=== PATIENT | female | born 1990 | race Caucasian/White ===

== ENCOUNTER → 2016-07-03 | Outpatient (CLI) | payer BC, OTHER ==
[~2016-07-03] MED LIST: ACHYD1T PO; DCS100C PO; DEXL30CA2 PO; IBP800T PO; MAGN400T6 PO; NUVA RING; ONDA4TAB11 PO; ONDAN4ODT PO; OXYC1TAB12 PO; PREN-115 PO; PREN1TAB19 PO; SULF1TAB38 PO; micronor PO
[2016-07-03 08:47] LABS: BASOPHILS % (AUTO) 0 % (0-10); EOSINOPHILS # (AUTO) 0.1 10^3/uL (0.0-0.3); EOSINOPHILS % (AUTO) 1 % (0-10); LYMPHOCYTES # (AUTO) 3.1 X 10^3 (1.0-4.0); LYMPHOCYTES % (AUTO) 31 % (12-44); MEAN CORPUSCULAR HEMOGLOBIN 31 PG (25-34); MEAN CORPUSCULAR HGB CONC 34 G/DL (32-36); MEAN CORPUSCULAR VOLUME 91 FL (80-99); MEAN PLATELET VOLUME 9.9 FL (7.4-10.4); MONOCYTES # (AUTO) 1.3 X 10^3 (0.0-1.0); MONOCYTES % (AUTO) 13 % (0-12); NEUTROPHILS # (AUTO) 5.6 X 10^3 (1.8-7.8); NEUTROPHILS % (AUTO) 55 % (42-75); PLATELET COUNT 280 10^3/uL (130-400); RED BLOOD COUNT 4.42 10^6/uL (4.35-5.85); RED CELL DISTRIBUTION WIDTH 12.9 % (10.0-14.5); WHITE BLOOD COUNT 10.1 10^3/uL (4.3-11.0)
[2016-07-03 09:00] LABS: ALANINE AMINOTRANSFERASE 30 U/L (0-55); ALBUMIN 4.2 G/DL (3.2-4.5); ANION GAP 12 MMOL/L (5-14); ASPARTATE AMINO TRANSFERASE 62 U/L (5-34); BILIRUBIN,TOTAL 0.3 MG/DL (0.1-1.0); BLOOD UREA NITROGEN 18 MG/DL (7-18); BUN/CREATININE RATIO 22; CALCIUM 9.1 MG/DL (8.5-10.1); CARBON DIOXIDE 21 MMOL/L (21-32); CHLORIDE 107 MMOL/L (98-107); CREATININE SERUM 0.82 MG/DL (0.60-1.30); GFR ESTIMATED > 60; GLUCOSE 82 MG/DL (70-105); POTASSIUM 3.2 MMOL/L (3.6-5.0); SODIUM 140 MMOL/L (135-145); hs C REACTIVE PROTEIN 0.06 MG/DL (0.00-0.50)
[2016-07-03 09:12] LABS: ERYTHROCYTE SEDIMENTATION RATE 6 MM/HR (0-20)
== END ==
LOC: LAB 07:37
PROVIDERS: ATTEND Emergency Medicine
DX: R55 Syncope and collapse (principal)
CPT/HCPCS: 36415; 80053; 84443; 85025; 85652; 86141

== ENCOUNTER 2017-04-26 05:31 | Outpatient (CLI) | payer BC ==
[~2017-04-26] VITALS: Ht 162.6 cm; Wt 66.7 kg
[2017-04-26] MEDS ORDERED: ONDA4TAB10 PO (11:21)
[2017-04-26] MEDS ORDERED: NORG1TAB14 PO (11:21)
[2017-04-26] MEDS ORDERED: NAPR-1070 PO (11:21)
[2017-04-29] MEDS ORDERED: NITR-65 PO (12:42)
[2017-04-29] MEDS ORDERED: OXYC-465 PO (12:42)
== END 2017-04-26 11:22 ==
LOC: PREOP 05:31
PROVIDERS: ATTEND Obstetrics & Gynecology
DX: Z01.818 Encounter for other preprocedural examination (principal); R10.2 Pelvic and perineal pain; N80.9 Endometriosis, unspecified; N93.8 Other specified abnormal uterine and vaginal bleeding; D64.9 Anemia, unspecified

== ENCOUNTER → 2017-05-02 | Outpatient (CLI) | payer BC ==
[~2017-05-02] MED LIST changes: +IOHEXOL 350 MG/ML 100 ML (OMNIPAQUE 350) VIAL IV ONE; +NAPR-1070 PO; +NITR-65 PO; +NORG1TAB14 PO; +NS 250 ML (IVPB) BAG IV ONE; +ONDA4TAB10 PO; +OXYC-465 PO
[2017-05-02 10:48] LABS: MEAN PLATELET VOLUME 9.5 FL (7.4-10.4); RED BLOOD COUNT 4.09 10^6/uL (4.35-5.85); RED CELL DISTRIBUTION WIDTH 12.9 % (10.0-14.5)
[2017-05-02 11:09] LABS: ALANINE AMINOTRANSFERASE 31 U/L (0-55); ALBUMIN 3.7 GM/DL (3.2-4.5); ALKALINE PHOSPHATASE 29 U/L (40-136); BILIRUBIN,TOTAL 0.3 MG/DL (0.1-1.0); BUN/CREATININE RATIO 11; CALCIUM 8.9 MG/DL (8.5-10.1); CARBON DIOXIDE 26 MMOL/L (21-32); CHLORIDE 103 MMOL/L (98-107); CREATININE SERUM 0.79 MG/DL (0.60-1.30); GFR ESTIMATED > 60; GLUCOSE 93 MG/DL (70-105); POTASSIUM 3.8 MMOL/L (3.6-5.0); SODIUM 136 MMOL/L (135-145); TOTAL PROTEIN 6.5 GM/DL (6.4-8.2)
--- NOTE | 2017-05-02 11:43 | Diagnostic Imaging Report ---
PROCEDURE: CT abdomen and pelvis with contrast. TECHNIQUE: Multiple contiguous axial images were obtained through the abdomen and pelvis after administration of intravenous contrast. INDICATION: Right side pain. COMPARISON: CT abdomen and pelvis with IV contrast 03/10/2013. FINDINGS: Stable scarring in the right lung base. Gallbladder wall thickening. No radiopaque cholelithiasis. Normal-appearing common bile duct. The liver, spleen, pancreas, adrenals, kidneys and collecting systems are unremarkable. Appendectomy. Small amount of fluid dependently in the pelvis. The reproductive structures are grossly unremarkable. No free intraperitoneal air. No lymphadenopathy. No evidence of bowel obstruction. Osseous structures are unremarkable. IMPRESSION: 1. Gallbladder wall thickening. No radiopaque cholelithiasis or dilatation of the common bile duct. This could be better evaluated with dedicated ultrasound. 2. Small amount of fluid in the pelvis may be physiologic. Dictated by: Dictated on workstation # [id number]
== END ==
LOC: RAD 10:28
PROVIDERS: ATTEND Obstetrics & Gynecology
DX: K82.8 Other specified diseases of gallbladder (principal); R10.9 Unspecified abdominal pain
CPT/HCPCS: 36415; 74177; 80053; 85027

== ENCOUNTER → 2017-05-06 | Outpatient (CLI) | payer BC ==
[~2017-05-06] MED LIST changes: -IOHEXOL 350 MG/ML 100 ML (OMNIPAQUE 350) VIAL IV ONE; -NS 250 ML (IVPB) BAG IV ONE
--- NOTE | 2017-05-06 15:38 | Diagnostic Imaging Report ---
CLINICAL INDICATION: Patient with severe right-sided pain. COMPARISON: Nuclear medicine HIDA study dated 03/19/2013. PROCEDURE: The patient was administered 5.31 millicuries of technetium 99m Choletec. After 60 minutes of the images, one can of Ensure was drink followed by another 60 minutes of imaging. A nuclear medicine hepatobiliary scan with ejection fraction was performed. FINDINGS: There is prompt uptake and excretion of radiotracer by the liver. Activity is visible in the gallbladder by 15 minutes and the small bowel by 15 minutes. Ejection fraction of the gallbladder is calculated at 67% (normal >35%). The patient's previous ejection fraction was 66%. The gallbladder visibly empties on the scans following the ingestion of Ensure. IMPRESSION: Normal hepatobiliary scan with normal gallbladder ejection fraction. Dictated by: Dictated on workstation # [id number]
== END ==
LOC: CARD 12:41
PROVIDERS: ATTEND Obstetrics & Gynecology
DX: R10.84 Generalized abdominal pain (principal)
CPT/HCPCS: 78227

== ENCOUNTER 2018-03-10 14:33 | Outpatient (CLI) | payer BC ==
[~2018-03-10] VITALS: Ht 162.6 cm; Wt 66.7 kg
[2018-03-10 14:44] VITALS: BP 130/83
[2018-03-10] MEDS ORDERED: PHEN37.53 PO (14:48)
[2018-03-10 15:13] LABS: BASOPHILS # (AUTO) 0.1 10^3/uL (0.0-0.1); BASOPHILS % (AUTO) 1 % (0-10); EOSINOPHILS # (AUTO) 0.1 10^3/uL (0.0-0.3); EOSINOPHILS % (AUTO) 1 % (0-10); HEMATOCRIT 40 % (35-52); HEMOGLOBIN 13.5 G/DL (11.5-16.0); LYMPHOCYTES # (AUTO) 2.5 X 10^3 (1.0-4.0); LYMPHOCYTES % (AUTO) 35 % (12-44); MEAN CORPUSCULAR HEMOGLOBIN 30 PG (25-34); MEAN CORPUSCULAR HGB CONC 34 G/DL (32-36); MEAN CORPUSCULAR VOLUME 90 FL (80-99); MEAN PLATELET VOLUME 8.9 FL (7.4-10.4); MONOCYTES # (AUTO) 0.8 X 10^3 (0.0-1.0); MONOCYTES % (AUTO) 12 % (0-12); NEUTROPHILS # (AUTO) 3.7 X 10^3 (1.8-7.8); NEUTROPHILS % (AUTO) 52 % (42-75); PLATELET COUNT 357 10^3/uL (130-400); RED BLOOD COUNT 4.47 10^6/uL (4.35-5.85); WHITE BLOOD COUNT 7.1 10^3/uL (4.3-11.0)
[2018-03-12] MEDS ORDERED: OXYC1TAB87 PO (12:19)
[2018-03-12] MEDS ORDERED: NAPR-1070 PO (12:19)
[2018-03-12] MEDS ORDERED: DOCU-143 PO (12:19)
== END 2018-03-10 15:05 | disposition home or self-care (01) ==
LOC: PREOP 14:33
PROVIDERS: ATTEND Obstetrics & Gynecology
DX: Z01.812 Encounter for preprocedural laboratory examination (principal); Z11.2 Encounter for screening for other bacterial diseases; R10.2 Pelvic and perineal pain; N80.9 Endometriosis, unspecified; N92.0 Excessive and frequent menstruation with regular cycle; D64.9 Anemia, unspecified
CPT/HCPCS: 36415; 84703; 85025; 87081

== ENCOUNTER 2018-03-12 11:40 | Day surgery (SDC) | payer BC ==
--- NOTE | 2018-03-05 11:57 | HISTORY AND PHYSICAL ---
DATE OF SERVICE: PREOPERATIVE HISTORY AND PHYSICAL HISTORY OF PRESENT ILLNESS: The patient is a 27-year-old G2, P2 white female with a long history of pelvic pain, dysfunctional uterine bleeding, menorrhagia and a history of endometriosis. Her symptoms have progressed and returned over the years. She now is at a point where she has completed her childbearing. Her pain is interfering with her being able to perform her work. 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 She is now pursuing definitive surgical treatment in the form of hysterectomy with bilateral salpingo-oophorectomy. She has no other particular gynecologic complaints. She denies vaginal discharge and has no urinary incontinence. She has tried oral contraceptives without improvement of her symptoms. ALLERGIES: PENICILLIN, which causes swelling and hives. MEDICATIONS: Sprintec. Medical, social and surgical histories are per this patient's recent H and P dated 01/30/2018. PHYSICAL EXAMINATION: HEENT: Normal. NECK: Supple, no lymphadenopathy and no thyromegaly. ABDOMEN: Soft, nontender and nondistended. There is some suprapubic tenderness and some tenderness in the lower quadrants bilaterally, left greater than the right. HEART: Has a regular rhythm with no murmur. CHEST: Clear to auscultation bilaterally. PELVIC EXAM: Deferred to the operating room. ASSESSMENT AND PLAN: This patient has a history of chronic pelvic pain and dysfunctional uterine bleeding, breakthrough bleeding and menorrhagia that have not been controlled with hormonal therapy to date. She is scheduled now for 03/12 to have definitive surgical treatment in the form of hysterectomy with bilateral salpingo-oophorectomy. Surgical risks, complication, recovery and follow up have been fully discussed and the patient accepts those risks and is ready to proceed. Job ID: [id number] DocumentID: [id number] Dictated Date: 03/05/2018 11:38:37 Wellness Educator Date: 03/05/2018 11:56:44 Dictated By: RAMIRO CARRINGTON MD
[~2018-03-12] VITALS: Ht 162.6 cm; Wt 66.7 kg
[2018-03-12] VITALS (7 sets, daily range): BP systolic 100–118; BP diastolic 59–79
[~2018-03-12 11:40] MED LIST changes: +PHEN37.53 PO
[2018-03-12] MEDS ORDERED: GLYCOPYRROLATE 0.2 MG/ML (ROBINUL) 2 ML VIAL ONE (11:52)
[2018-03-12] MEDS ORDERED: MIDAZOLAM 2 MG/2 ML (VERSED) VIAL ONE (11:52)
[2018-03-12] MEDS ORDERED: LIDOCAINE PF 2% 5 ML (XYLOCAINE) VIAL ONE (11:52)
[2018-03-12] MEDS ORDERED: NEOSTIGMINE 1 MG/ML 5 ML SYRINGE ONE (11:52)
[2018-03-12] MEDS ORDERED: SEVOFLURANE (ULTANE) 15 ML INHAL SOLN ONE (11:52)
[2018-03-12] MEDS ORDERED: proPOfol 200 MG/20 ML (DIPRIVAN) VIAL IV ONE (11:52)
[2018-03-12] MEDS ORDERED: DEXAMETHASONE 10 MG/ML (DECADRON) 1 ML VIAL ONE (11:52)
[2018-03-12] MEDS ORDERED: ROCURONIUM 10 MG/ML 5 ML SYRINGE IV ONE (11:52)
[2018-03-12] MEDS ORDERED: fentaNYL INJECTION 100 MCG/2 ML AMP ONE ×2 (11:52→13:24)
[2018-03-12] MEDS ORDERED: ONDANSETRON 4 MG/2 ML (SDV) Z0FRAN ONE ×2 (11:52→14:16)
--- OUTSIDE RECORDS SUMMARY | 2018-03-12 11:52 | XMS REPORT | Continuity of Care Document ---
Author Author [facility] Organization [facility] Address Unknown Phone Unavailable Allergies Active Description Code Type Severity Reaction Onset Reported/Identified Relationship to Patient Clinical Status Yes cefuroxime [id number] Drug Allergy Unknown RASH 07/16/2014 Yes PENICILLIN PENICILLIN Unknown HIVES 07/16/2014 Yes Penicillins [id number] Drug Allergy Unknown RASH 04/26/2017 Medications There is no data. Problems Date Dx Coded Attending Type Code Diagnosis Diagnosed By 09/11/2009 Ot 850.0 CONCUSSION W/ O COMA 09/11/2009 Ot 920 CONTUSION FACE/ SCALP/NCK 09/11/2009 Ot 959.01 HEAD INJURY , NOS 09/11/2009 Ot E000.8 OTHER EXTERNAL CAUSE STATUS 09/11/2009 Ot E030 UNSPECIFIED ACTIVITY 09/11/2009 Ot E849.0 ACCIDENT IN HOME 09/11/2009 Ot E888.1 FALL STRIKING OBJECT NEC 03/14/2011 Ot 462 ACUTE PHARYNGITIS 02/28/2012 Ot 883.0 OPEN WOUND OF FINGER 02/28/2012 Ot E000.0 CIVILIAN ACTIVITY DONE FOR INCOME OR PAY 02/28/2012 Ot E920.5 HYPODERMIC NEEDLE 02/28/2012 Ot V22.2 PREG STATE, INCIDENTAL 04/09/2012 Ot 648.73 BONE DISORDER-ANTEPARTUM 04/09/2012 Ot 719.45 JOINT PAIN- PELVIS 04/09/2012 Ot V57.1 PHYSICAL THERAPY NEC 05/27/2012 Ot 665.41 HIGH VAGINAL LACER-DELIV 05/27/2012 Ot V27.0 DELIVER- SINGLE LIVEBORN 03/11/2013 [employer] Ot 560.1 PARALYTIC ILEUS 03/11/2013 [employer] Ot 574.20 CHOLELITHIASIS NOS 03/11/2013 [employer] Ot 575.8 DIS OF GALLBLADDER NEC 03/11/2013 [employer] Ot 789.00 ABDOMINAL PAIN, UNSPECIFIED SITE 07/08/2014 Ot 789.00 07/08/2014 Ot 789.00 07/08/2014 Ot 285.9 07/08/2014 Ot 625.9 07/08/2014 Ot V72.83 07/08/2014 Ot 789.01 07/08/2014 Ot 625.8 07/08/2014 Ot 780.60 07/08/2014 Ot 786.2 07/08/2014 Ot 724.5 07/08/2014 Ot 786.2 07/08/2014 Ot 729.5 07/08/2014 TOM MULTANI MD Ot 789.01 07/16/2014 TOM MULTANI MD Ot 789.01 07/16/2014 TMO MULTANI MD Ot 789.01 07/16/2014 TOM MULTANI MD Ot 789.01 07/18/2014 CHARISSA MEDLEY, RAMIRO Hanna Ot 644.13 THREAT LABOR NEC-ANTEPAR 07/19/2014 TOM MULTANI MD Ot 789.01 07/20/2014 TOM MULTANI MD Ot 789.01 08/23/2014 RAMIRO CARRINGTON MD Ot 644.03 THRT [place] LABOR-ANTEPART 08/30/2014 RAMIRO CARRINGTON MD Ot 644.03 THRT [employer] LABOR-ANTEPART 09/04/2014 TOM MULTANI MD Ot 789.01 09/05/2014 RAMIRO CARRINGTON MD Ot 644.21 EARLY ONSET DELIVERY-DEL 09/05/2014 RAMIRO CARRINGTON MD Ot 664.01 DEL W 1 DEG LACERAT-DEL 09/05/2014 RAMIRO CARRINGTON MD Ot V06.1 [id number], COMBINED [ 09/05/2014 RAMIRO CARRINGTON MD Ot V27.0 DELIVER-SINGLE LIVEBORN 11/06/2014 TOM MULTANI MD Ot 789.01 03/11/2015 TOM MULTANI MD Ot 789.01 03/15/2015 TOM MULTANI MD Ot 789.01 03/22/2015 TOM MULTANI MD Ot 789.01 03/22/2015 TOM MULTANI MD Ot 789.01 04/19/2015 TOM MULTANI MD Ot 789.01 06/20/2015 TOM MULTANI MD, Ot 789.01 07/19/2015 Ot 729.5 PAIN IN LIMB 09/21/2015 TOM MULTANI MD Ot 789.01 ABDOMINAL PAIN, RIGHT UPPER QUADRANT 09/21/2015 TOM MULTANI MD Ot 789.01 ABDOMINAL PAIN, RIGHT UPPER QUADRANT 11/18/2015 Ot 729.5 PAIN IN LIMB 07/03/2016 TOM MULTANI MD Ot 789.01 ABDOMINAL PAIN, RIGHT UPPER QUADRANT 07/03/2016 TOM MULTANI MD, Ot R55 SYNCOPE AND COLLAPSE 07/03/2016 TOM MULTANI MD Ot 789.01 ABDOMINAL PAIN, RIGHT UPPER QUADRANT 07/09/2016 TOM MULTANI MD, Ot R55 SYNCOPE AND COLLAPSE 07/10/2016 TOM MULTANI MD, Ot R55 SYNCOPE AND COLLAPSE 07/20/2016 TOM MULTANI MD, Ot R55 SYNCOPE AND COLLAPSE 11/15/2016 TOM MULTANI MD Ot 789.01 ABDOMINAL PAIN, RIGHT UPPER QUADRANT 11/15/2016 TOM MULTANI MD, Ot R55 SYNCOPE AND COLLAPSE 01/17/2017 TOM MULTANI MD Ot 789.01 ABDOMINAL PAIN, RIGHT UPPER QUADRANT 01/17/2017 TOM MULTANI MD, Ot R55 SYNCOPE AND COLLAPSE 01/19/2017 TOM MULTANI MD Ot 789.01 ABDOMINAL PAIN, RIGHT UPPER QUADRANT 01/19/2017 TOM MULTANI MD, Ot R55 SYNCOPE AND COLLAPSE 04/25/2017 TOM MULTANI MD Ot 789.01 ABDOMINAL PAIN, RIGHT UPPER QUADRANT 04/25/2017 TOM MULTANI MD, Ot R55 SYNCOPE AND COLLAPSE 04/25/2017 TOM MULTANI MD Ot 789.01 ABDOMINAL PAIN, RIGHT UPPER QUADRANT 04/25/2017 TOM MULTANI MD Ot R55 SYNCOPE AND COLLAPSE 04/26/2017 TOM MULTANI MD Ot 789.01 ABDOMINAL PAIN, RIGHT UPPER QUADRANT 04/26/2017 TOM MULTANI MD Ot R55 SYNCOPE AND COLLAPSE 04/26/2017 TOM MULTANI MD Ot 789.01 ABDOMINAL PAIN, RIGHT UPPER QUADRANT 04/26/2017 TOM MULTANI MD Ot R55 SYNCOPE AND COLLAPSE 04/26/2017 RAMIRO CARRINGTON MD, Ot D64.9 ANEMIA, UNSPECIFIED 04/26/2017 RAMIRO CARRINGTON MD, Ot N80.9 ENDOMETRIOSIS, UNSPECIFIED 04/26/2017 RAMIRO CARRINGTON MD, Ot N93.8 OTHER SPECIFIED ABNORMAL UTERINE AND VAG 04/26/2017 RAMIRO CARRINGTON MD, Ot R10.2 PELVIC AND PERINEAL PAIN 04/26/2017 RAMIRO CARRINGTON MD, Ot Z01.818 ENCOUNTER FOR OTHER PREPROCEDURAL EXAMIN 04/29/2017 RAMIRO CARRINGTON MD, Ot N80.8 OTHER ENDOMETRIOSIS 04/29/2017 RAMIRO CARRINGTON MD, Ot N83.201 UNSPECIFIED OVARIAN CYST, RIGHT SIDE 04/29/2017 RAMIRO CARRINGTON MD, Ot N83.202 UNSPECIFIED OVARIAN CYST, LEFT SIDE 04/29/2017 RAMIRO CARRINGTON MD, Ot R10.2 PELVIC AND PERINEAL PAIN 04/29/2017 RAMIRO CARRINGTON MD, Ot Z86.19 PERSONAL HISTORY OF OTHER INFECTIOUS AND 04/29/2017 RAMIRO CARRINGTON MD, Ot Z88.0 ALLERGY STATUS TO PENICILLIN 04/29/2017 RAMIRO CARRINGTON MD, Ot Z88.1 ALLERGY STATUS TO OTHER ANTIBIOTIC AGENT 04/29/2017 RAMIRO CARRINGTON MD, Ot D64.9 ANEMIA, UNSPECIFIED 04/29/2017 RAMIRO CARRINGTON MD, Ot N80.9 ENDOMETRIOSIS, UNSPECIFIED 04/29/2017 RAMIRO CARRINGTON MD, Ot N93.8 OTHER SPECIFIED ABNORMAL UTERINE AND VAG 04/29/2017 RAMIRO CARRINGTON MD, Ot R10.2 PELVIC AND PERINEAL PAIN 04/29/2017 RAMIRO CARRINGTNO MD, Ot Z01.818 ENCOUNTER FOR OTHER PREPROCEDURAL EXAMIN 05/02/2017 RAMIRO CARRINGTON MD, Ot N80.8 OTHER ENDOMETRIOSIS 05/02/2017 RAMIRO CARRINGTON MD, Ot N83.201 UNSPECIFIED OVARIAN CYST, RIGHT SIDE 05/02/2017 RAMIRO CARRINGTON MD, Ot N83.202 UNSPECIFIED OVARIAN CYST, LEFT SIDE 05/02/2017 RAMIRO CARRINGTON MD Ot R10.2 PELVIC AND PERINEAL PAIN 05/02/2017 RAMIRO CARRINGTON MD, Ot Z86.19 PERSONAL HISTORY OF OTHER INFECTIOUS AND 05/02/2017 RAMIRO CARRINGTON MD, Ot Z88.0 ALLERGY STATUS TO PENICILLIN 05/02/2017 RAMIRO CARRINGTON MD, Ot Z88.1 ALLERGY STATUS TO OTHER ANTIBIOTIC AGENT 05/02/2017 RAMIRO CARRINGTON MD Ot N80.8 OTHER ENDOMETRIOSIS 05/02/2017 RAMIRO CARRINGTON MD, Ot N83.201 UNSPECIFIED OVARIAN CYST, RIGHT SIDE 05/02/2017 RAMIRO CARRINGTON MD, Ot N83.202 UNSPECIFIED OVARIAN CYST, LEFT SIDE 05/02/2017 RAMIRO CARRINGTON MD, Ot R10.2 PELVIC AND PERINEAL PAIN 05/02/2017 RAMIRO CARRINGTON MD, Ot Z86.19 PERSONAL HISTORY OF OTHER INFECTIOUS AND 05/02/2017 RAMIRO CARRINGTON MD Ot Z88.0 ALLERGY STATUS TO PENICILLIN 05/02/2017 RAMIRO CARRINGTON MD, Ot Z88.1 ALLERGY STATUS TO OTHER ANTIBIOTIC AGENT 05/03/2017 RAMIRO CARRINGTON MD Ot K82.8 OTHER SPECIFIED DISEASES OF GALLBLADDER 05/03/2017 RAMIRO CARRINGTON MD Ot R10.9 UNSPECIFIED ABDOMINAL PAIN 05/09/2017 RAMIRO CARRINGTON MD Ot R10.84 GENERALIZED ABDOMINAL PAIN 05/12/2017 RAMIRO CARRINGTON MD Ot K82.8 OTHER SPECIFIED DISEASES OF GALLBLADDER 05/15/2017 RAMIRO CARRINGTON MD Ot K82.8 OTHER SPECIFIED DISEASES OF GALLBLADDER 05/22/2017 Ot 789.00 05/22/2017 Ot 789.00 ABDOMINAL PAIN, UNSPECIFIED SITE 05/22/2017 Ot 285.9 05/22/2017 Ot 625.9 05/22/2017 Ot V72.83 05/22/2017 Ot 789.01 05/22/2017 Ot 625.8 05/22/2017 Ot 780.60 05/22/2017 Ot 786.2 05/22/2017 Ot 724.5 BACKACHE NOS 05/22/2017 Ot 786.2 COUGH 05/22/2017 Ot 729.5 PAIN IN LIMB 05/22/2017 TOM MULTANI MD Ot 789.01 ABDOMINAL PAIN, RIGHT UPPER QUADRANT 05/22/2017 TOM MULTANI MD Ot R55 SYNCOPE AND COLLAPSE 05/22/2017 TOM MULTANI MD Ot R55 SYNCOPE AND COLLAPSE 05/22/2017 RAMIRO CARRINGTON MD, Ot K82.8 OTHER SPECIFIED DISEASES OF GALLBLADDER 05/22/2017 RAMIRO CARRINGTON MD, Ot R10.84 GENERALIZED ABDOMINAL PAIN 05/22/2017 TOM MULTANI MD Ot 789.01 ABDOMINAL PAIN, RIGHT UPPER QUADRANT 05/22/2017 TOM MULTANI MD, Ot R55 SYNCOPE AND COLLAPSE 05/22/2017 RAMIRO CARRINGOTN MD, Ot K82.8 OTHER SPECIFIED DISEASES OF GALLBLADDER 05/22/2017 RAMIRO CARRINGTON MD, Ot R10.84 GENERALIZED ABDOMINAL PAIN 06/05/2017 RAMIRO CARRINGTON MD, Ot N80.8 OTHER ENDOMETRIOSIS 06/05/2017 RAMIRO CARRINGTON MD, Ot N83.201 UNSPECIFIED OVARIAN CYST, RIGHT SIDE 06/05/2017 RAMIRO CARRINGTON MD, Ot N83.202 UNSPECIFIED OVARIAN CYST, LEFT SIDE 06/05/2017 RAMIRO CARRINGTON MD, Ot R10.2 PELVIC AND PERINEAL PAIN 06/05/2017 RAMIRO CARRINGTON MD, Ot Z86.19 PERSONAL HISTORY OF OTHER INFECTIOUS AND 06/05/2017 RAMIRO CARRINGTON MD, Ot Z88.0 ALLERGY STATUS TO PENICILLIN 06/05/2017 RAMIRO CARRINGTON MD, Ot Z88.1 ALLERGY STATUS TO OTHER ANTIBIOTIC AGENT 06/06/2017 RAMIRO CARRINGTON MD, Ot N80.8 OTHER ENDOMETRIOSIS 06/06/2017 RAMIRO CARRINGTON MD, Ot N83.201 UNSPECIFIED OVARIAN CYST, RIGHT SIDE 06/06/2017 RAMIRO CARRINGTON MD, Ot N83.202 UNSPECIFIED OVARIAN CYST, LEFT SIDE 06/06/2017 RAMIRO CARRINGTON MD, Ot R10.2 PELVIC AND PERINEAL PAIN 06/06/2017 RAMIRO CARRINGTON MD, Ot Z86.19 PERSONAL HISTORY OF OTHER INFECTIOUS AND 06/06/2017 RAMIRO CARRINGTON MD, Ot Z88.0 ALLERGY STATUS TO PENICILLIN 06/06/2017 RAMIRO CARRINGTON MD, Ot Z88.1 ALLERGY STATUS TO OTHER ANTIBIOTIC AGENT 10/09/2017 Ot 789.00 10/09/2017 Ot 789.00 ABDOMINAL PAIN, UNSPECIFIED SITE 10/09/2017 Ot 285.9 10/09/2017 Ot 625.9 10/09/2017 Ot V72.83 10/09/2017 Ot 789.01 10/09/2017 Ot 625.8 10/09/2017 Ot 780.60 10/09/2017 Ot 786.2 10/09/2017 Ot 724.5 BACKACHE NOS 10/09/2017 Ot 786.2 COUGH 10/09/2017 Ot 729.5 PAIN IN LIMB 10/09/2017 TOM MULTANI MD Ot 789.01 ABDOMINAL PAIN, RIGHT UPPER QUADRANT 10/09/2017 TOM MULTANI MD Ot R55 SYNCOPE AND COLLAPSE 10/09/2017 TOM MULTANI MD Ot R55 SYNCOPE AND COLLAPSE 10/09/2017 RAMIRO CARRINGTON MD Ot K82.8 OTHER SPECIFIED DISEASES OF GALLBLADDER 10/09/2017 RAMIRO CARRINGTON MD Ot R10.84 GENERALIZED ABDOMINAL PAIN 11/22/2017 TOM MULTANI MD Ot 789.01 ABDOMINAL PAIN, RIGHT UPPER QUADRANT 11/22/2017 TOM MULTANI MD Ot R55 SYNCOPE AND COLLAPSE 11/22/2017 TOM MULTANI MD Ot R55 SYNCOPE AND COLLAPSE 11/22/2017 RAMIRO CARRINGTON MD Ot K82.8 OTHER SPECIFIED DISEASES OF GALLBLADDER 11/22/2017 RAMIRO CARRINGTON MD Ot R10.84 GENERALIZED ABDOMINAL PAIN 11/22/2017 TOM MULTANI MD Ot 789.01 ABDOMINAL PAIN, RIGHT UPPER QUADRANT 11/22/2017 TOM MULTANI MD, Ot R55 SYNCOPE AND COLLAPSE 11/22/2017 RAMIRO CARRINGTON MD, Ot K82.8 OTHER SPECIFIED DISEASES OF GALLBLADDER 11/22/2017 RAMIRO CARRINGTON MD Ot R10.84 GENERALIZED ABDOMINAL PAIN 12/05/2017 TOM MULTANI MD Ot 789.01 ABDOMINAL PAIN, RIGHT UPPER QUADRANT 12/05/2017 TOM MULTANI MD, Ot R55 SYNCOPE AND COLLAPSE 12/05/2017 RAMIRO CARRINGTON MD Ot K82.8 OTHER SPECIFIED DISEASES OF GALLBLADDER 12/05/2017 RAMIRO CARRINGTON MD, Ot R10.84 GENERALIZED ABDOMINAL PAIN 12/05/2017 TOM MULTANI MD Ot 789.01 ABDOMINAL PAIN, RIGHT UPPER QUADRANT 12/05/2017 TOM MULTANI MD, Ot R55 SYNCOPE AND COLLAPSE 12/05/2017 RAMIRO CARRINGTON MD Ot K82.8 OTHER SPECIFIED DISEASES OF GALLBLADDER 12/05/2017 RAMIRO CARRINGTON MD Ot R10.84 GENERALIZED ABDOMINAL PAIN 12/31/2017 TOM MULTANI MD Ot 789.01 ABDOMINAL PAIN, RIGHT UPPER QUADRANT 12/31/2017 TOM MULTANI MD, Ot R55 SYNCOPE AND COLLAPSE 12/31/2017 RAMIRO CARRINGTON MD Ot K82.8 OTHER SPECIFIED DISEASES OF GALLBLADDER 12/31/2017 RAMIRO CARRINGTON MD Ot R10.84 GENERALIZED ABDOMINAL PAIN 12/31/2017 TOM MULTANI MD Ot 789.01 ABDOMINAL PAIN, RIGHT UPPER QUADRANT 12/31/2017 TOM MULTANI MD, Ot R55 SYNCOPE AND COLLAPSE 12/31/2017 RAMIRO CARRINGTON MD, Ot K82.8 OTHER SPECIFIED DISEASES OF GALLBLADDER 12/31/2017 RAMIRO CARRINGTON MD Ot R10.84 GENERALIZED ABDOMINAL PAIN 02/17/2018 TOM MULTANI MD Ot 789.01 ABDOMINAL PAIN, RIGHT UPPER QUADRANT 02/17/2018 TOM MULTANI MD Ot R55 SYNCOPE AND COLLAPSE 02/17/2018 RAMIRO CARRINGTON MD, Ot K82.8 OTHER SPECIFIED DISEASES OF GALLBLADDER 02/17/2018 RAMIRO CARRINGTON MD, Ot R10.84 GENERALIZED ABDOMINAL PAIN Procedures Code Description Performed By Performed On 73.6 EPISIOTOMY 05/25/2012 75.69 REPAIR OB LACERATION NEC 05/25/2012 75.69 REPAIR OB LACERATION NEC 09/04/2014 Results Test Result Range Complete blood count (CBC) with automated white blood cell (WBC) differential - 07/03/16 07:40 Blood leukocytes automated count (number/volume) 10.1 10*3/uL 4.3-11.0 Blood erythrocytes automated count (number/volume) 4.42 10*6/uL 4.35-5.85 Venous blood hemoglobin measurement (mass/volume) 13.7 g/dL 11.5-16.0 Blood hematocrit (volume fraction) 40 % 35-52 Automated erythrocyte mean corpuscular volume 91 [foz_us] 80-99 Automated erythrocyte mean corpuscular hemoglobin (mass per erythrocyte) 31 pg 25-34 Automated erythrocyte mean corpuscular hemoglobin concentration measurement ( mass/volume) 34 g/dL 32-36 Automated erythrocyte distribution width ratio 12.9 % 10.0-14.5 Automated blood platelet count (count/volume) 280 10*3/uL 130-400 Automated blood platelet mean volume measurement 9.9 [foz_us] 7.4-10.4 Automated blood neutrophils/100 leukocytes 55 % 42-75 Automated blood lymphocytes/100 leukocytes 31 % 12-44 Blood monocytes/100 leukocytes 13 % 0-12 Automated blood eosinophils/100 leukocytes 1 % 0-10 Automated blood basophils/100 leukocytes 0 % 0-10 Blood neutrophils automated count (number/volume) 5.6 10*3 1.8-7.8 Blood lymphocytes automated count (number/volume) 3.1 10*3 1.0-4.0 Blood monocytes automated count (number/volume) 1.3 10*3 0.0-1.0 Automated eosinophil count 0.1 10*3/uL 0.0-0.3 Automated blood basophil count (count/volume) 0.0 10*3/uL 0.0-0.1 Comprehensive metabolic panel - 07/03/16 07:40 Serum or plasma sodium measurement (moles/volume) 140 mmol/L 135-145 Serum or plasma potassium measurement (moles/volume) 3.2 mmol/L 3.6-5.0 Serum or plasma chloride measurement (moles/volume) 107 mmol/L 98-107 Carbon dioxide 21 mmol/L 21-32 Serum or plasma anion gap determination (moles/volume) 12 mmol/L 5-14 Serum or plasma urea nitrogen measurement (mass/volume) 18 mg/dL 7-18 Serum or plasma creatinine measurement (mass/volume) 0.82 mg/dL 0.60-1.30 Serum or plasma urea nitrogen/creatinine mass ratio 22 NRG Serum or plasma creatinine measurement with calculation of estimated glomerular filtration rate > NRG Serum or plasma glucose measurement (mass/volume) 82 mg/dL 70-105 Serum or plasma calcium measurement (mass/volume) 9.1 mg/dL 8.5-10.1 Serum or plasma total bilirubin measurement (mass/volume) 0.3 mg/dL 0.1-1.0 Serum or plasma alkaline phosphatase measurement (enzymatic activity/volume) 40 U/L 40-136 Serum or plasma aspartate aminotransferase measurement (enzymatic activity/ volume) 62 U/L 5-34 Serum or plasma alanine aminotransferase measurement (enzymatic activity/volume ) 30 U/L 0-55 Serum or plasma protein measurement (mass/volume) 7.0 g/dL 6.4-8.2 Serum or plasma albumin measurement (mass/volume) 4.2 g/dL 3.2-4.5 Serum or plasma thyrotropin measurement by detection limit <=0.05 miu/l (units/ volume) - 07/03/16 07:40 Serum or plasma thyrotropin measurement by detection limit <=0.05 miu/l (units/ volume) 1.97 u[iU]/mL 0.35-4.94 Erythrocyte sedimentation rate by westergren method - 07/03/16 07:40 Erythrocyte sedimentation rate by westergren method 6 mm 0-20 Serum or plasma C reactive protein measurement (mass/volume) - 07/03/16 07:40 Serum or plasma C reactive protein measurement (mass/volume) 0.06 mg /dL 0.00-0.50 Urine beta human chorionic gonadotropin (hCG) measurement - 04/29/17 11:10 Urine beta human chorionic gonadotropin (hCG) measurement NEGATIVE NEGATIVE Methicillin resistant Staphylococcus aureus (MRSA) screening culture - 11:30 Methicillin resistant Staphylococcus aureus (MRSA) screening culture NEG NRG Complete blood count (CBC) with automated white blood cell (WBC) differential - 04/29/17 11:59 Blood leukocytes automated count (number/volume) 8.7 10*3/uL 4.3-11.0 Blood erythrocytes automated count (number/volume) 4.35 10*6/uL 4.35-5.85 Venous blood hemoglobin measurement (mass/volume) 13.8 g/dL 11.5-16.0 Blood hematocrit (volume fraction) 40 % 35-52 Automated erythrocyte mean corpuscular volume 92 [foz_us] 80-99 Automated erythrocyte mean corpuscular hemoglobin (mass per erythrocyte) 32 pg 25-34 Automated erythrocyte mean corpuscular hemoglobin concentration measurement ( mass/volume) 34 g/dL 32-36 Automated erythrocyte distribution width ratio 12.9 % 10.0-14.5 Automated blood platelet count (count/volume) 273 10*3/uL 130-400 Automated blood platelet mean volume measurement 9.3 [foz_us] 7.4-10.4 Automated blood neutrophils/100 leukocytes 67 % 42-75 Automated blood lymphocytes/100 leukocytes 24 % 12-44 Blood monocytes/100 leukocytes 8 % 0-12 Automated blood eosinophils/100 leukocytes 1 % 0-10 Automated blood basophils/100 leukocytes 1 % 0-10 Blood neutrophils automated count (number/volume) 5.8 10*3 1.8-7.8 Blood lymphocytes automated count (number/volume) 2.1 10*3 1.0-4.0 Blood monocytes automated count (number/volume) 0.7 10*3 0.0-1.0 Automated eosinophil count 0.0 10*3/uL 0.0-0.3 Automated blood basophil count (count/volume) 0.0 10*3/uL 0.0-0.1 Automated blood complete blood count (hemogram) panel - 05/02/17 10:45 Blood leukocytes automated count (number/volume) 9.0 10*3/uL 4.3-11.0 Blood erythrocytes automated count (number/volume) 4.09 10*6/uL 4.35-5.85 Venous blood hemoglobin measurement (mass/volume) 13.0 g/dL 11.5-16.0 Blood hematocrit (volume fraction) 38 % 35-52 Automated erythrocyte mean corpuscular volume 93 [foz_us] 80-99 Automated erythrocyte mean corpuscular hemoglobin (mass per erythrocyte) 32 pg 25-34 Automated erythrocyte mean corpuscular hemoglobin concentration measurement ( mass/volume) 34 g/dL 32-36 Automated erythrocyte distribution width ratio 12.9 % 10.0-14.5 Automated blood platelet count (count/volume) 222 10*3/uL 130-400 Automated blood platelet mean volume measurement 9.5 [foz_us] 7.4-10.4 Comprehensive metabolic panel - 05/02/17 10:45 Serum or plasma sodium measurement (moles/volume) 136 mmol/L 135-145 Serum or plasma potassium measurement (moles/volume) 3.8 mmol/L 3.6-5.0 Serum or plasma chloride measurement (moles/volume) 103 mmol/L 98-107 Carbon dioxide 26 mmol/L 21-32 Serum or plasma anion gap determination (moles/volume) 7 mmol/L 5-14 Serum or plasma urea nitrogen measurement (mass/volume) 9 mg/dL 7-18 Serum or plasma creatinine measurement (mass/volume) 0.79 mg/dL 0.60-1.30 Serum or plasma urea nitrogen/creatinine mass ratio 11 NRG Serum or plasma creatinine measurement with calculation of estimated glomerular filtration rate > NRG Serum or plasma glucose measurement (mass/volume) 93 mg/dL 70-105 Serum or plasma calcium measurement (mass/volume) 8.9 mg/dL 8.5-10.1 Serum or plasma total bilirubin measurement (mass/volume) 0.3 mg/dL 0.1-1.0 Serum or plasma alkaline phosphatase measurement (enzymatic activity/volume) 29 U/L 40-136 Serum or plasma aspartate aminotransferase measurement (enzymatic activity/ volume) 25 U/L 5-34 Serum or plasma alanine aminotransferase measurement (enzymatic activity/volume ) 31 U/L 0-55 Serum or plasma protein measurement (mass/volume) 6.5 g/dL 6.4-8.2 Serum or plasma albumin measurement (mass/volume) 3.7 g/dL 3.2-4.5 Encounters ACCT No. Visit Date/Time Discharge Status Pt. Type Provider Facility Loc./Unit Complaint [id number] 05/06/2017 12:41:00 05/06/2017 23:59:59 CLS Outpatient CHARISSA MEDLEY, RAMIRO Hanna [facility] CARD SEVERE RT SIDE PAIN [id number] 05/02/2017 10:28:00 05/02/2017 23:59:59 CLS Outpatient RAMIRO CARRINGTON MD [facility] RAD SEVERE RT SIDE PAIN [id number] 04/29/2017 10:55:00 04/29/2017 17:40:00 DIS Outpatient RAMIRO CARRINGTON MD [facility] SDC CHRONIC PELVIC PAIN,DUB [id number] 04/26/2017 05:31:00 04/26/2017 11:22:00 DIS Outpatient RAMIRO CARRINGTON MD [facility] PREOP CHRONIC PELVIC PAIN,DUB [id number] 07/03/2016 07:37:00 07/03/2016 23:59:59 CLS Outpatient TOM MULTANI MD [facility] LAB SYNCOPE [id number] 09/21/2015 12:43:00 09/21/2015 23:59:59 CLS Outpatient TOM MULTANI MD [facility] LAB SYNCOPE [id number] 09/03/2014 19:56:00 09/05/2014 13:50:00 DIS Inpatient RAMIRO CARRINGTON MD [facility] LDRP LABOR [id number] 08/30/2014 01:56:00 08/30/2014 09:00:00 DIS Outpatient RAMIRO CARRINGTON MD [facility] WSo CONTRACTIONS [id number] 08/22/2014 23:15:00 08/23/2014 07:22:00 DIS Inpatient RAMIRO CARRINGTON MD [facility] LDRP CONTRACTIONS [id number] 07/17/2014 05:14:00 07/18/2014 14:15:00 DIS Inpatient RAMIRO CARRINGTON MD [facility] LDRP LABOR [id number] 03/19/2013 12:18:00 03/19/2013 23:59:59 CLS Outpatient TOM MULTANI MD [facility] RAD RUQ PAIN [id number] 03/10/2013 20:54:00 03/11/2013 00:05:00 DIS Emergency [employer] ER ABD PAIN [id number] 03/12/2018 13:00:00 RAMIRO Bolivar MD [facility] SDC ENDOMETRIOSIS,CHRONIC PELVIC PAIN [id number] 07/08/2014 10:08:00 Document Registration [id number] 07/08/2014 10:08:00 Document Registration [id number] 07/08/2014 10:08:00 Document Registration [id number] 07/08/2014 10:08:00 Document Registration [id number] 05/25/2012 08:04:00 Document Registration [id number] 03/21/2012 08:49:00 Document Registration [id number] 02/28/2012 03:17:00 Document Registration [id number] 03/14/2011 02:42:00 Document Registration [id number] 10/15/2010 12:11:00 Document Registration [id number] 09/11/2009 21:23:00 Document Registration [id number] 07/22/2009 10:00:00 Document Registration [id number] 11/29/2008 14:43:00 Document Registration [id number] 08/06/2008 08:37:00 Document Registration [id number] 11/11/2007 16:16:00 Document Registration [id number] 06/26/2005 16:06:00 Document Registration [id number] 05/30/2005 09:31:00 Document Registration [id number] 05/29/2005 12:11:00 Document Registration [id number] 09/03/2014 16:31:05 ACT Document Registration
[2018-03-12] MEDS ORDERED: ONDANSETRON 4 MG/2 ML (SDV) Z0FRAN IV ONE (12:00)
[2018-03-12] MEDS ORDERED: SCOPOLAMINE 1.5 MG (TRANSDERM-SCOP) PATCH TOP ONE (12:00)
[2018-03-12] MEDS ORDERED: FAMOTIDINE 20MG/2ML IV (PEPCID) IV ONE (12:00)
[2018-03-12] MEDS: LACTATED RINGERS 1,000 ML IV PRN ×2 (12:00→13:02)
[2018-03-12] MEDS ORDERED: BUP/EPI 0.5% 1:200,000 (SENSORCAINE) 30 ML VIAL ONE (12:03)
--- NOTE | 2018-03-12 12:12 | Progress Note-Pre Operative ---
Pre-Operative Progress Note H&P Reviewed The H&P was reviewed, patient examined and no changes noted. Date Seen by Provider: Mar 12, 2018 Time Seen by Provider: 12:11 Date H&P Reviewed: Mar 12, 2018 Time H&P Reviewed: 12:11 Pre-Operative Diagnosis: Chronic pelvic pain/endometriosis/abnormal bleeding RAMIRO CARRINGTON MD Mar 12, 2018 12:11
--- NOTE | 2018-03-12 12:13 | Progress Note-Post Operative ---
Post-Operative Progess Note Surgeon (s)/Accounting Generalist (s) Surgeon RAMIRO CARRINGTON MD Accounting Generalist: Sumi Olguin Pre-Operative Diagnosis Chronic pelvic pain/endometriosis/abnormal bleeding Post-Operative Diagnosis Same with pathology pending Procedure & Operative Findings Date of Procedure 03/12/18 Procedure Performed/Findings TL H with BSO Anesthesia Type GETA Estimated Blood Loss Estimated blood loss (mL): Minimal Specimens/Packing Specimens Removed Uterus fallopian tubes and ovaries Packing: RAMIRO Garcia MD Mar 12, 2018 12:13
[2018-03-12] MEDS ORDERED: WATER (STERILE) FOR INJ 10 ML BTL INJ ONE (12:15)
[2018-03-12] MEDS ORDERED: ONDANSETRON 4 MG/2 ML (SDV) Z0FRAN IVP PRN ×2 (12:15→14:30)
[2018-03-12] MEDS ORDERED: PROMETHAZINE INJ 25 MG/ML (PHENERGAN) AMP IM PRN (12:15)
[2018-03-12] MEDS ORDERED: ESTROGENS CONJ IV 25 MG/5 ML (PREMARIN) VIAL IVP ONE (12:15)
[2018-03-12] MEDS ORDERED: MEPERIDINE (DEMEROL) INJ 100 MG/ML IM PRN (12:15)
[2018-03-12] MEDS ORDERED: KETOROLAC 30 MG/ML VIAL IVP SCH (12:15)
[2018-03-12] MEDS ORDERED: DOCU-143 PO (12:19)
[2018-03-12] MEDS ORDERED: OXYC1TAB87 PO (12:19)
[2018-03-12] MEDS ORDERED: NAPR-1070 PO (12:19)
--- NOTE | 2018-03-12 12:20 | Discharge Instructions ---
Discharge Instructions Discharge Medications New, Converted or Re-Newed RX: RX on Chart Patient Instructions Patient Instructions: as directed Return to The Hospital For: As directed Activity & Diet Discharge Diet: No Restrictions Activity as Tolerated: No Orders-Post D/C & Referrals Follow Up Appt: Return to clinic on Saturday, March 14, 2018 at 930 a.m. for staple removal Call to make follow up appt. for patient in 4 weeks. Activity: Rest for 24 hours, than as tolerated. Wound Care: May remove Band-Aid tomorrow. Replace as desired. Keep incisions clean and dry. Wash daily with soap and water. Please call in RX to patient pharmacy. Diet: As tolerated-Clear Liquids only if nauseated. Tomorrow, may shower or tub bathe as desired. No driving for 24 hours, no alcoholic beverages for 24 hours, and nothing per vagina (no tampons, douching, or intercourse) for 8 weeks. Patient to return to the clinic as soon as possible for: Temperature greater than 101F, Severe Pain, Foul discharge from incision or vagina, Excessive Bleeding (more than a period). RAMIRO CARRINGTON MD Mar 12, 2018 12:20
[2018-03-12] MEDS: LEVOFLOXACIN 250 MG/50 ML IVPB 50 ML IV ONE ×2 (12:22→12:24)
[2018-03-12] MEDS: KETOROLAC 30 MG/ML VIAL IVP SCH ×2 (13:50→20:30)
[2018-03-12] MEDS ORDERED: HYDROmorphone 2 MG/ML VIAL (DILAUDID) ONE (14:15)
[2018-03-12] MEDS ORDERED: HYDROmorphone 2 MG/ML VIAL (DILAUDID) IV ONE (14:30)
--- NOTE | 2018-03-12 15:08 | Anesthesia-General Post-Op ---
General Patient Condition Mental Status/LOC: Same as Preop Cardiovascular: Satisfactory Nausea/Vomiting: Absent Respiratory: Satisfactory Pain: Controlled Complications: Absent Post Op Complications Complications None Follow Up Care/Instructions Patient Instructions None needed. Anesthesia/Patient Condition Patient Condition Patient is doing well, no complaints, stable vital signs, no apparent adverse anesthesia problems. No complications reported per nursing. PABLITO KIRBY CRNA Mar 12, 2018 15:08
[2018-03-12] MEDS ORDERED: D5 LR IV SOLUTION 1,000 ML IV ONE (15:55)
[2018-03-12] MEDS: D5 LR IV SOLUTION 1,000 ML IV SCH (16:06)
[2018-03-12] MEDS: oxyCODONE/APAP 5/325MG (PERCOCET 5) TABLET PO PRN (21:26)
[2018-03-13] VITALS: BP 105/59
[2018-03-13] MEDS: D5 LR IV SOLUTION 1,000 ML IV SCH (00:01)
--- NOTE | 2018-03-13 00:58 | OPERATIVE REPORT ---
DATE OF SERVICE: 03/12/2018 PREOPERATIVE DIAGNOSES: Chronic pelvic pain, history of endometriosis and menorrhagia. POSTOPERATIVE DIAGNOSES: Chronic pelvic pain, history of endometriosis and menorrhagia with recurrent endometriosis and pelvic adhesions. OPERATIVE PROCEDURE: Total laparoscopic hysterectomy with bilateral salpingo-oophorectomy as well as necessary adhesiolysis and destruction of remaining endometriosis implants. OPERATIVE DESCRIPTION: With the patient in the supine position under satisfactory general anesthesia, she was prepped and draped in the usual fashion for abdominal and vaginal surgery after being repositioned in dorsal lithotomy position in the [facility] as properly for laparoscopic surgery. Weighted speculum was then placed in the posterior fornix of vagina, cervix exposed and grasped anteriorly with single tooth tenaculum. The uterus was sounded to 7.5 cm with uterine sound. The cervix was then serially dilated with [place]om[place] dilators to accommodate a Patsy II manipulator, which was placed using a 6 mm x 8 cm uterine probe and a 30 mm colpotomy ring. Sutures of #1 Vicryl placed at 3 and 9 o'clock position of the cervix to affix the uterus to the manipulator. Faye catheter was placed in the urinary bladder. The tenaculum and speculum were removed, and the patient brought in low dorsal lithotomy position. A 12 mm incision was made in the base of the umbilicus and then 8 mm incisions were made about 8 cm lateral to the umbilicus just below the level of the umbilicus. Care was taken to avoid placing the incision into this patient's tattoo ink on her left side. The Veress needle was placed through the umbilical incision. Correct placement confirmed with a water drop test. The abdomen was insufflated to 2.4 liters of carbon dioxide and the Veress needle was removed and a 12 mm laparoscopic port placed under direct vision. The abdominal wall was transilluminated and 8 mm ports were placed through the lateral incision. All port sites had been infiltrated with 0.25% Marcaine with epinephrine prior to incision and port placement. The patient was now placed in Trendelenburg allowing the bowel to spill up out of the pelvis. The da Ki column was advanced on to the patient and docked and then I retired to the da Ki console after operative instruments were placed in the right and left lateral ports. At the console using the vessel sealer on the right and a bipolar fenestrated grasper on the left, the pelvis was first examined. The uterus was quite mottled in appearance. The uterine manipulator had perforated the apex of the uterus. The tissue looked somewhat rigid and fibrotic and looked like it had extensive adenomyosis, which would potentially account for the uterine manipulator bulb rupturing the uterus rather that expanding the uterus. There was minimal bleeding and it was not a problem since we were removing the uterus anyway. Both ovaries were adherent to the ovarian fossae on the respective sides. Both tubes were relatively normal in appearance. The left tube was somewhat tortuous and fibrotic appearing and appeared to have endosalpingiosis and some degree of hydrosalpinx. The ureters on both sides were clearly visible and freely peristalsing. There were obvious endometriosis implants in the ovarian fossae and in the cul-de-sac. The appendix was surgically absent. The procedure was initiated by elevating the right fallopian tube and ovary and then using the vessel sealer clamped, cauterized and divide first the IP ligament and the mesovarium and the round ligament, the broad ligaments and eventually the cardinal ligament. Same procedure performed on the left, allowing for removal of bulb, tubes and ovaries eventually with the uterus. A reasonable portion of the broad ligament was removed as there were endometriosis implants on that tissue and the impetus was to remove as much of the endometriosis suspected tissue as we could. With the ovary was freed, the vessel sealer was replaced with monopolar shear. The anterior lower uterine segment peritoneum was exposed. An incision was made across the peritoneum. The bladder and peritoneum were dissected well down off the lower uterine segment off of the cervix, exposing the wall of the vagina over the colpotomy ring. An incision was made onto the colpotomy ring at the 12 o'clock position. That incision was continued circumferentially until the entire colpotomy ring was exposed and then the uterus with tubes and ovaries still attached was extracted through the vagina. The vaginal cuff was closed with a single suture of V-Loc barbed suture starting first on the right angle and continuing all the way across and then with the vaginal cuff completely closed, the balance of the suture was used to bring the peritoneum back down onto the vaginal cuff and reperitonealize that area. Care was taken to include the pedicles of the uterine vessels and the closure to ensure hemostasis. The pelvis was now irrigated and examined for hemostasis. That being complete, the bipolar fenestrated grasper on the left and the monopolar shear on the right were used to destroy the endometriosis implants in both ovarian fossae on the uterosacral ligaments and the cul-de-sac of Desmond. There was extensive adhesion of omentum to the right posterior lateral aspect of the cul-de-sac. This adhesion was lysed very carefully. There were three Colby-Masters windows. Each of these had endometriosis implants on OR in them that were destroyed. The most deep one in the cul-de-sac had a nodular lesion that was grasped and elevated. The peritoneum was removed to remove that lesion as well. The pelvis was examined final time with all of the endometrial implants had been destroyed. Both ureters were seemed to peristalse again freely and were well away from any areas of dissection or cautery. Both ureters were of normal caliber. There was no bleeding. There was no remaining abnormal pathology and at this point, the procedure was terminated. A specimen was removed from the abdomen through the right lateral port that was removed from the endometriosis implant in the cul-de-sac. The operative instruments were removed under direct vision as were the ports. The abdomen was evacuated of the insufflating gas in the process of removing the ports. The skin incisions laterally were closed with brittany. The umbilical incision was closed with [id number] suture of 2-0 Vicryl in the fascia and then 3-0 nylon sutures in the skin. Speculum was replaced in the vagina. The vaginal cuff was examined and found to be completely reapproximated and completely hemostatic. Sponge and needle counts were correct on completion of the procedure. Estimated blood loss for the procedure was minimal. The patient tolerated the procedure well and was uneventfully awakened from her general anesthesia and transferred to the recovery room in stable condition. Faye catheter was left to dependent drainage. Job ID: [id number] DocumentID: [id number] Dictated Date: 03/12/2018 14:03:59 Salesforce Consultant Date: 03/13/2018 00:57:07 Dictated By: RAMIRO CARRINGTON MD MTDD
[2018-03-13] MEDS: KETOROLAC 30 MG/ML VIAL IVP SCH ×2 (02:05→08:33)
[2018-03-13 04:05] VITALS: BP 98/70
[2018-03-13] MEDS: oxyCODONE/APAP 5/325MG (PERCOCET 5) TABLET PO PRN (04:09)
[2018-03-13 07:50] VITALS: BP 109/59
--- NOTE | 2018-03-13 07:52 | Progress Note-Standard ---
Standard Progress Note Progress Notes/Assess & Plan Date Seen by a Provider: Mar 13, 2018 Time Seen by a Provider: 07:51 Progress/Assessment & Plan This patient is without complaint. She is ambulating, voiding, tolerating oral intake well, has good pain control. Patient is requesting discharge home. Vital signs are stable. Patient is afebrile. Vital Signs 03/13/18 04:05 Temp 98.5 Pulse 73 Resp 18 B/P (MAP) 98/70 (79) Pulse Ox 99 O2 Delivery Room Air The abdomen is benign Gen. show clubbing cyanosis. Homans sign. Assessment and plan postoperative day number 1 doing well. Plan is for discharge home with follow-up in clinic Final Diagnosis Chronic pelvic pain/menorrhagia/endometriosis RAMIRO CARRINGTON MD Mar 13, 2018 07:52
[2018-03-13] MEDS ORDERED: IBUPROFEN 800 MG (MOTRIN) TAB PO ONE (07:53)
[2018-03-13] MEDS ORDERED: DOCUSATE SODIUM 100 MG (COLACE) CAP PO SCH (09:00)
[2018-03-13] MEDS ORDERED: IBUPROFEN 800 MG (MOTRIN) TAB PO SCH (13:00)
== END 2018-03-13 09:45 | disposition home or self-care (01) ==
LOC: SDC 11:40 → WS 15:37 → SDC 03-13 09:45
PROVIDERS: ATTEND Obstetrics & Gynecology
DX: N80.0 Endometriosis of uterus (principal); N83.8 Other noninflammatory disorders of ovary, fallopian tube and broad ligament; N83.201 Unspecified ovarian cyst, right side; N83.202 Unspecified ovarian cyst, left side; L72.9 Follicular cyst of the skin and subcutaneous tissue, unspecified; N92.0 Excessive and frequent menstruation with regular cycle; N80.3 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 of pelvic peritoneum
CPT/HCPCS: 86850; 86900; 86901; 94664

== ENCOUNTER → 2018-10-20 | Outpatient (CLI) | payer BC ==
[~2018-10-20] MED LIST changes: +DOCU-143 PO; +OXYC1TAB87 PO
--- NOTE | 2018-10-20 17:32 | Diagnostic Imaging Report ---
INDICATION: Joint pain. TIME OF EXAM: 2:05 p.m. FINDINGS: Multiple views of the bilateral hands were obtained. MCP and interphalangeal joints are intact bilaterally. No osseous erosive changes are seen. Carpal bones are unremarkable. Distal radius and ulna are intact bilaterally. There are no fractures. IMPRESSION: Unremarkable bilateral hand radiographs. Dictated by: Dictated on workstation # [id number]
--- NOTE | 2018-10-20 17:38 | Diagnostic Imaging Report ---
INDICATION: Joint pain. TIME OF EXAM: 2:08 p.m. Multiple views of the bilateral feet were obtained. FINDINGS: MTP and interphalangeal joints are unremarkable bilaterally. No osseous erosive changes are identified. Midfoot and hindfoot are unremarkable bilaterally. There are no fractures. IMPRESSION: Unremarkable bilateral foot radiographs. Dictated by: Dictated on workstation # [id number]
== END ==
LOC: RAD 13:55
PROVIDERS: ATTEND Family Medicine
DX: M25.442 Effusion, left hand (principal); M25.441 Effusion, right hand; M25.474 Effusion, right foot; M25.475 Effusion, left foot

== ENCOUNTER 2018-11-21 20:47 | Emergency (ER) | payer BC ==
[~2018-11-21] VITALS: Ht 162.6 cm; Wt 63.5 kg
[2018-11-21] MEDS ORDERED: NS IV 1000 ML 1,000 ML IV ONE (20:56)
[2018-11-21] MEDS ORDERED: diphenhydrAMINE 50 MG/ML INJ (BENADRYL) IV STA (20:56)
[2018-11-21] MEDS ORDERED: methylPREDNISolone 125 MG (Solu-MEDROL) VIAL IV STA (20:56)
--- NOTE | 2018-11-21 21:15 | ED Integumentary General ---
General Chief Complaint: Allergic Reaction Stated Complaint: FACIAL SWELLING Nursing Triage Note: AMBULATORY TO ED ROOM 6 WITH C/O HIVES AND UPPER LIP SWELLING. RECENT EAR INFECTION AND ON OMNICEFF, EAR DROPS, AND STEROID PACK THAT HAS BEEN DONE FOR 3 DAYS. THIS AM HIVES STARTED TO BACK OF LEGS AND ITCHING. APPROX 1400 UPPER LIP BEGAN TO SWELL AND TOOK PEPCID 40 MG PO. TOOK BENADRYL 50MG PO AT 1630. HAS ALSO HAD SOME TONGUE TINGLING, NAUSEA, AND ABD CRAMPING. Exam Limitations: no limitations History of Present Illness Date Seen by Provider: Nov 21, 2018 Time Seen by Provider: 20:53 Initial Comments Here with report of hives and swelling to her face. States her tongue is itching a little bit. She did have some nausea and abdominal cramping earlier but that went away after Benadryl. She took 50 mg of Benadryl and 40 mg of Pepcid at a bout 1630. She is on Omnicef for ear infection as well as eardrops. She was on a Medrol Dosepak that ended 3 days ago. She has not had problems with cephalosporins but she did have similar allergic reaction to penicillin. Denies breathing problems or wheezing currently. Timing/Duration: this afternoon Severity: moderate Location: face, torso, extremities Possible Cause: medications Modifying Factors: improves with antihistamine Associated Symptoms: hives; No sore throat; tingling Allergies and Home Medications Allergies Coded Allergies: Cephalosporins (Verified Allergy, Unknown, 11/21/18) Penicillins (Verified Allergy, Unknown, RASH, 04/26/17) cefuroxime (Unverified Allergy, Unknown, RASH, 07/16/14) Home Medications Docusate Sodium 100 Mg Capsule, 100 MG PO BID Prescribed by: RAMIRO JIANG on 03/12/18 1219 Naproxen Sodium 550 Mg Tablet, 550 MG PO Q8H PRN for PAIN-MILD TO MODERATE Prescribed by: RAMIRO JIANG on 03/12/18 1219 Norgestimate-Ethinyl Estradiol 1 Each Tablet, 1 EACH PO DAILY, (Reported) Oxycodone HCl/Acetaminophen 1 Each Tablet, 1 EACH PO Q4H PRN for PAIN-MODERATE Prescribed by: RAMIRO JIANG on 03/12/18 1219 Phentermine HCl 37.5 Mg Tablet, 37.5 MG PO DAILY PRN for appetitie, (Reported) Prednisone 20 Mg Tab, 40 MG PO DAILY Prescribed by: TOM MULTANI on 11/21/18 7921 Patient Home Medication List Home Medication List Reviewed: Yes Review of Systems Review of Systems Constitutional: see HPI; No chills, No fever EENTM: see HPI, mouth swelling; No throat swelling Respiratory: No short of breath, No stridor, No wheezing Cardiovascular: no symptoms reported Gastrointestinal: see HPI Musculoskeletal: no symptoms reported Skin: see HPI, change in color, pruritus, rash Psychiatric/Neurological: No Symptoms Reported Past Tsyorzr-Vvisxr-Kdzwre Hx Past Med/Social Hx: Reviewed Nursing Past Med/Soc Hx Patient Social History Alcohol Use: Occasionally Uses Number of Drinks Today: Alcohol Beverage of Choice: Wine Recreational Drug Use: No Smoking Status: Never a Smoker Recent Foreign Travel: No Contact w/Someone Who Travel: No Recent Infectious Disease Expo: No Recent Hopitalizations: No Physical Abuse: No Sexual Abuse: No Mistreated: No Fear: No Immunizations Up To Date Tetanus Booster (TDap): Less than 5yrs PED Vaccines UTD: Yes Date of Influenza Vaccine: Dec 23, 2017 Seasonal Allergies Seasonal Allergies: No (as a child) Past Medical History Surgeries: Yes (DXLS x2, WRIST SX, d&C) Adenoidectomy, Appendectomy, Hysterectomy, Orthopedic, Tonsillectomy Respiratory: No Cardiac: No Neurological: Yes (as child, no seizures for 20 years) Reproductive Disorders: Yes 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 Sexually Transmitted Disease: No HIV/AIDS: No Genitourinary: No Gastrointestinal: No (NAUSEA FROM PAIN) Musculoskeletal: No Endocrine: No HEENT: Yes (lasik eye sx) Cancer: No Psychosocial: No Anxiety Integumentary: No Pruritis Blood Disorders: No Adverse Reaction/Blood Tranf: No Family Medical History Reviewed Nursing Family Hx Colon cancer maternal grandfather (52) Diabetes mellitus 19 FATHER (borderline) FH: lung cancer maternal grandmother Physical Exam Vital Signs Vital Signs - First Documented 11/21/18 20:50 Temp 98.8 Pulse 108 Resp 16 B/P (MAP) 130/92 (105) O2 Delivery Room Air Capillary Refill : Less Than 3 Seconds General Appearance: WD/WN, no apparent distress HEENT: pharynx normal, other (moderate swelling to the upper lip. No obvious significant intraoral swelling but she reports some tingling to her tongue.) Neck: full range of motion, supple Cardiovascular: no murmur, tachycardia Respiratory: lungs clear, normal breath sounds Gastrointestinal: non tender, soft Back: normal inspection, no vertebral tenderness Extremities: normal range of motion, non-tender Neurologic/Psychiatric: alert, normal mood/affect Skin: warm/dry Skin Problem Location: face, upper extremities, lower extremities Skin Problem Character: urticarial Progress/Results/Core Measures Results/Orders My Orders Orders - TOM MULTANI MD Ed Iv/Invasive Line Start (11/21/18 20:56) Ns Iv 1000 Ml (Sodium Chloride 0.9%) (11/21/18 20:56) Diphenhydramine Injection (Benadryl Inje (11/21/18 20:56) Methylprednisolone Sod Succ (Solu-Medrol (11/21/18 20:56) Diphenhydramine Injection (Benadryl Inje (11/21/18 22:45) Prednisone Tablet (Deltasone Tablet) (11/21/18 23:45) Medications Given in ED Current Medications Medications Dose Ordered Sig/Desire Route Start Time Stop Time Status Last Admin Dose Admin Diphenhydramine HCl 25 mg ONCE ONCE IVP 11/21/18 22:45 11/21/18 22:46 DC 11/21/18 22:46 25 MG Prednisone 40 mg ONCE ONCE PO 11/21/18 23:45 11/21/18 23:46 DC 11/21/18 23:50 40 MG Sodium Chloride 1,000 ml @ 0 mls/hr Q0M ONCE IV 11/21/18 20:56 11/21/18 20:58 DC 11/21/18 21:08 0 MLS/HR Vital Signs/I&O 11/21/18 20:50 Temp 98.8 Pulse 108 Resp 16 B/P (MAP) 130/92 (105) O2 Delivery Room Air 11/22/18 00:00 Intake Total 1000 ml Balance 1000 ml Blood Pressure Mean: 105 Progress Progress Note : Progress Note Seen and evaluated. Given symptoms we will go ahead and get IV with normal saline 1 L bolus, Benadryl 25 mg IV and Solu-Medrol 125 mg IV ordered. Monitor patient. No indication of epinephrine currently but we will continue to monitor for significant adverse effect. 2350: Repeat Benadryl 25 mg IV for itching was given earlier. Prednisone 40 mg by mouth ordered. Patient is doing better currently in the lip swelling seems to be decreased at this point. We will monitor ensure that she is able to keep meds down and then consider discharge. Monitor patient. 0153: Overall improved but still has some swelling of her lips. Able to keep the prednisone down without difficulty. Itching is improved. Discharged home with return precautions. Patient verbalize understanding instructions and agreement with plan. Departure Impression Primary Impression: Drug-induced anaphylaxis Qualified Codes: T78.2XXA - Anaphylactic shock, unspecified, initial encounter; T50.905A - Adverse effect of unspecified drugs, medicaments and biological substances, initial encounter Disposition: HOME, SELF-CARE Condition: Improved Departure-Patient Inst. Decision time for Depature: 01:54 Referrals: FISH COFFEY MD (PCP/Family) Primary Care Physician Patient Instructions: Anaphylaxis Add. Discharge Instructions: All discharge instructions reviewed with patient and/or family. Voiced understanding. You should not take cephalosporin antibiotics anymore as this is likely the cause of your allergic or action. You should take Pepcid or the generic famotidine 20 mg twice daily for the next 45 days. You may take Benadryl or the generic diphenhydramine 25 mg one every 4-6 hours as needed for itching. Take other medications as directed. Follow-up with your Dr. in a few days for recheck. Return breathing problems, swelling, wheezing, abdominal pain, nausea or vomiting or other concerns as needed. Scripts Prednisone (Prednisone) 20 Mg Tab 40 MG PO DAILY, #8 TAB 0 Refills Prov: TOM MULTANI MD 11/21/18 TOM MULTANI MD Nov 21, 2018 21:15
[2018-11-21] MEDS ORDERED: diphenhydrAMINE 50 MG/ML INJ (BENADRYL) IVP ONE (22:45)
[2018-11-21] MEDS ORDERED: predniSONE 20 MG TAB PO ONE (23:45)
[2018-11-21] MEDS ORDERED: PRD20T PO (23:58)
[2018-11-22 01:56] VITALS: BP 90/53
== END 2018-11-22 02:01 | disposition home or self-care (01) ==
LOC: EDUNIT# 20:47 → ER 20:48
DX: T88.6XXA Anaphylactic reaction due to adverse effect of correct drug or medicament properly administered, initial encounter (principal); T50.905A Adverse effect of unspecified drugs, medicaments and biological substances, initial encounter; F41.9 Anxiety disorder, unspecified; Z79.52 Long term (current) use of systemic steroids; Z88.1 Allergy status to other antibiotic agents; Z88.0 Allergy status to penicillin; Z90.49 Acquired absence of other specified parts of digestive tract; Z90.710 Acquired absence of both cervix and uterus; Z90.89 Acquired absence of other organs; Z80.0 Family history of malignant neoplasm of digestive organs; Z80.1 Family history of malignant neoplasm of trachea, bronchus and lung
CPT/HCPCS: 96361; 96374; 96375

== ENCOUNTER 2020-11-13 23:07 | Inpatient (IN) | payer BC ==
[~2020-11-13] VITALS: Ht 165 cm; Wt 66.2 kg
[~2020-11-13 23:07] MED LIST changes: +ONDA-105 PO; -ONDA4TAB10 PO; -OXYC-465 PO; +OXYC-556 PO; -PHEN37.53 PO; +PHEN37.58 PO; +PRD20T PO
[2020-11-14] MEDS ORDERED: KETOROLAC 30 MG/ML VIAL IVP STA (00:02)
--- NOTE | 2020-11-14 00:12 | ED GU-Female ---
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 COFFEY Allergies and Home Medications Allergies Coded Allergies: Cephalosporins (Verified Allergy, Unknown, 11/21/18) Penicillins (Verified Allergy, Unknown, RASH, 04/26/17) cefuroxime (Unverified Allergy, Unknown, RASH, 07/16/14) Home Medications Docusate Sodium 100 Mg Capsule, 100 MG PO BID Prescribed by: RAMIRO JIANG on 03/12/18 1219 Naproxen Sodium 550 Mg Tablet, 550 MG PO Q8H PRN for PAIN-MILD TO MODERATE Prescribed by: RAMIRO JIANG on 03/12/18 1219 Norgestimate-Ethinyl Estradiol 1 Each Tablet, 1 EACH PO DAILY, (Reported) Oxycodone HCl/Acetaminophen 1 Each Tablet, 1 EACH PO Q4H PRN for PAIN-MODERATE Prescribed by: RAMIRO JIANG on 03/12/18 1219 Phentermine HCl 37.5 Mg Tablet, 37.5 MG PO DAILY PRN for appetitie, (Reported) Prednisone 20 Mg Tab, 40 MG PO DAILY Prescribed by: TOM MULTANI on 11/21/18 3058 Patient Home Medication List Home Medication List Reviewed: Yes Review of Systems Review of Systems Constitutional: see HPI, chills Respiratory: no symptoms reported Cardiovascular: no symptoms reported Gastrointestinal: see HPI, abdominal pain, nausea; No vomiting Genitourinary: burning, dysuria, frequency, flank pain, hematuria, urgency Musculoskeletal: see HPI, back pain Skin: no symptoms reported Psychiatric/Neurological: No Symptoms Reported Past Ycpbxoo-Zvahak-Jcativ Hx Patient Social History Tobacco Use?: No Substance use?: No Alcohol Use?: No Immunizations Up To Date Tetanus Booster (TDap): Less than 5yrs PED Vaccines UTD: Yes Seasonal Allergies Seasonal Allergies: No (as a child) Past Medical History Surgery/Hospitalization HX: LASIK EYE SURGERY DIAGNOSTIC LAPAROSCOPY X 2 D&C WRIST SURGERY APPENDECTOMY HYSTERECTOMY TONSILLECTOMY/ADENOIDECTOMY Surgeries: Yes (DXLS x2, WRIST SX, d&C) Adenoidectomy, Appendectomy, Eye Surgery, Hysterectomy, Orthopedic, Tonsillectomy Respiratory: No Cardiac: No Neurological: Yes (as child, no seizures for 20 years) Reproductive Disorders: Yes Female Reproductive Disorders: 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 Sexually Transmitted Disease: No HIV/AIDS: No Genitourinary: No Gastrointestinal: No (NAUSEA FROM PAIN) Musculoskeletal: No Endocrine: No HEENT: Yes (lasik eye sx) Cancer: No Psychosocial: Yes Anxiety Integumentary: No Blood Disorders: No Adverse Reaction/Blood Tranf: No Family Medical History Colon cancer maternal grandfather (52) Diabetes mellitus 19 FATHER (borderline) FH: lung cancer maternal grandmother Physical Exam Vital Signs Vital Signs - First Documented 11/13/20 23:56 Temp 36.4 Pulse 93 Resp 18 B/P (MAP) 109/66 (80) Pulse Ox 100 O2 Delivery Room Air Capillary Refill : Height, Weight, BMI Height: 5'4.00" Weight: 140lbs. 0oz. [id number]; 25.2 BMI Method:Stated General Appearance: WD/WN Cardiovascular: regular rate, rhythm, no edema, no murmur Respiratory: normal breath sounds, no respiratory distress, no accessory muscle use Gastrointestinal: normal bowel sounds, soft, tenderness (BILATERAL FLANK TENDERNESS, DIFFUSE LOWER ABDOMINAL TENDERNESS ) Back: CVA tenderness (R), CVA tenderness (L) Extremities: normal inspection Neurologic/Psychiatric: no motor/sensory deficits, alert, normal mood/affect, oriented x 3 Focused Exam Lactate Level 11/14/20 00:55: Lactic Acid Level 1.25 Progress/Results/Core Measures Suspected Sepsis SIRS Temperature: Pulse: Respiratory Rate: Laboratory Tests 11/14/20 00:07: White Blood Count 18.0H Blood Pressure / Mean: 11/14/20 00:55: Lactic Acid Level 1.25 Laboratory Tests 11/14/20 00:07: Creatinine 0.90, Platelet Count 341, Total Bilirubin 0.3 Results/Orders Lab Results Laboratory Tests Test 11/14/20 00:03 11/14/20 00:07 11/14/20 00:55 Range/Units Urine Color RED H Urine Clarity SL CLOUDY Urine pH 5.5 5-9 Urine Specific [place] 1.025 H 1.016-1.022 Urine Protein 3+ H NEGATIVE Urine Glucose (UA) NEGATIVE NEGATIVE Urine Ketones TRACE H NEGATIVE Urine Nitrite POSITIVE H NEGATIVE Urine Bilirubin 2+ H NEGATIVE Urine Urobilinogen 1.0 < = 1.0 MG/DL Urine Leukocyte Esterase 2+ H NEGATIVE Urine RBC (Auto) 3+ H NEGATIVE Urine RBC TNTC H /HPF Urine WBC 25-50 H /HPF Urine Squamous Epithelial Cells 2-5 /HPF Urine Crystals NONE /LPF Urine Bacteria LARGE H /HPF Urine Casts NONE /LPF Urine Mucus LARGE H /LPF Urine Culture Indicated YES White Blood Count 18.0 H 4.3-11.0 10^3/uL Red Blood Count 4.39 3.80-5.11 10^6/uL Hemoglobin 13.6 11.5-16.0 g/dL Hematocrit 41 35-52 % Mean Corpuscular Volume 94 80-99 fL Mean Corpuscular Hemoglobin 31 25-34 pg Mean Corpuscular Hemoglobin Concent 33 32-36 g/dL Red Cell Distribution Width 13.0 10.0-14.5 % Platelet Count 341 130-400 10^3/uL Mean Platelet Volume 9.2 9.0-12.2 fL Immature Granulocyte % (Auto) 1 % Neutrophils (%) (Auto) 75 42-75 % Lymphocytes (%) (Auto) 16 12-44 % Monocytes (%) (Auto) 8 0-12 % Eosinophils (%) (Auto) 0 0-10 % Basophils (%) (Auto) 0 0-10 % Neutrophils # (Auto) 13.5 H 1.8-7.8 10^3/uL Lymphocytes # (Auto) 2.9 1.0-4.0 10^3/uL Monocytes # (Auto) 1.4 H 0.0-1.0 10^3/uL Eosinophils # (Auto) 0.0 0.0-0.3 10^3/uL Basophils # (Auto) 0.1 0.0-0.1 10^3/uL Immature Granulocyte # (Auto) 0.1 0.0-0.1 10^3/uL Neutrophils % (Manual) 76 % Lymphocytes % (Manual) 14 % Monocytes % (Manual) 8 % Band Neutrophils 2 % Blood Morphology Comment NORMAL Sodium Level 136 135-145 MMOL/L Potassium Level 3.6 3.6-5.0 MMOL/L Chloride Level 103 98-107 MMOL/L Carbon Dioxide Level 22 21-32 MMOL/L Anion Gap 11 5-14 MMOL/L Blood Urea Nitrogen 11 7-18 MG/DL Creatinine 0.90 0.60-1.30 MG/DL Estimat Glomerular Filtration Rate 73 BUN/Creatinine Ratio 12 Glucose Level 113 H 70-105 MG/DL Calcium Level 9.6 8.5-10.1 MG/DL Corrected Calcium 9.5 8.5-10.1 MG/DL Total Bilirubin 0.3 0.1-1.0 MG/DL Aspartate Amino Transf (AST/SGOT) 16 5-34 U/L Alanine Aminotransferase (ALT/SGPT) 17 0-55 U/L Alkaline Phosphatase 38 L 40-136 U/L Total Protein 7.6 6.4-8.2 GM/DL Albumin 4.1 3.2-4.5 GM/DL Procalcitonin 0.05 <0.10 NG/ML Lactic Acid Level 1.25 0.50-2.00 MMOL/L My Orders Orders - AGUILA CEJA DO Ed Iv/Invasive Line Start (11/14/20 00:02) Ct Abd/Pelvis Wo(Kidney Stone) (11/14/20 00:02) Abdomen/Kub 1view (11/14/20 00:02) Cbc With Automated Diff (11/14/20 00:02) Comprehensive Metabolic Panel (11/14/20 00:02) Ua Culture If Indicated (11/14/20 00:02) Ed Iv/Invasive Line Start (11/14/20 00:02) Lactated Ringers (Lr 1000 Ml Iv Solution (11/14/20 00:15) Ketorolac Injection (Toradol Injection) (11/14/20 00:02) Ondansetron Injection (Zofran Injectio (11/14/20 00:15) Manual Differential (11/14/20 00:07) Urine Culture (11/14/20 00:03) Blood Culture (11/14/20 00:45) Vital Signs Adult Sepsis Patie Q15M (11/14/20 00:45) Remove Rings In Anticipation O (11/14/20 00:45) Lactic Acid Analyzer (11/14/20 00:45) Procalcitonin (Pct) (11/14/20 00:45) Ciprofloxacin Iv 400mg/200ml (Cipro Iv S (11/14/20 00:45) Phenazopyridine Tablet (Pyridium Tablet) (11/14/20 00:45) Fentanyl Inj (Sublimaze Injection) (11/14/20 01:00) Fentanyl Inj (Sublimaze Injection) (11/14/20 02:15) Medications Given in ED Current Medications Medications Dose Ordered Sig/Desire Route Start Time Stop Time Status Last Admin Dose Admin Ciprofloxacin/ Dextrose 200 ml @ 200 mls/hr ONCE ONCE IV 11/14/20 00:45 11/14/20 01:44 DC 11/14/20 01:10 200 MLS/HR Fentanyl Citrate 50 mcg ONCE ONCE IVP 11/14/20 01:00 11/14/20 01:01 DC 11/14/20 01:10 50 MCG Lactated Ringer's 1,000 ml @ 0 mls/hr Q0M ONCE IV 11/14/20 00:15 11/14/20 00:16 DC 11/14/20 00:10 0 MLS/HR Ondansetron HCl 4 mg ONCE ONCE IVP 11/14/20 00:15 11/14/20 00:16 DC 11/14/20 00:10 4 MG Phenazopyridine HCl 200 mg ONCE ONCE PO 11/14/20 00:45 11/14/20 00:47 DC 11/14/20 01:09 200 MG Vital Signs/I&O 11/13/20 11/14/20 11/14/20 11/14/20 23:56 01:10 02:07 02:30 Temp 36.4 36.4 36.1 36.3 Pulse 93 81 75 Resp 18 16 20 B/P (MAP) 109/66 (80) 143/88 115/61 (79) Pulse Ox 100 100 98 O2 Delivery Room Air Room Air Room Air 11/14/20 11/14/20 02:30 03:57 Temp 36.5 Pulse 93 Resp 18 B/P (MAP) 115/75 (88) Pulse Ox 98 98 O2 Delivery Room Air Room Air Capillary Refill : Progress Note : Progress Note GIVEN IV FLUIDS, ZOFRAN, TORADOL AND FENTANYL WITH IMPROVEMENT IN SYMPTOMS GIVEN CIPRO--PT STATES SHE HAS TAKEN BEFORE AND NOT HAD ANY PROBLEMS NO DETERIORATION IN PT'S CONDITION DURING ER STAY Diagnostic Imaging Comments KUB--NO ACUTE PROCESS, PENDING RADIOLOGIST REVIEW CT ABDOMEN/PELVIS--NO ACUTE PROCESS, PER [facility] VIA FAX AT 0125 Reviewed: Reviewed by Me Departure Communication (Admissions) 131--ATTEMPTING TO CONTACT DR. KHAN, MESSAGE LEFT ON PHONE 151--SPOKE WITH DR. KHAN, ACCEPTS PT FOR ADMIT Impression Primary Impression: Pyelonephritis Additional Impression: UTI WITH GROSS HEMATURIA Disposition: ADMITTED INPATIENT Condition: Improved Admissions Decision to Admit Reason: Admit from ER (General) Decision to Admit/Date: Nov 14, 2020 Time/Decision to Admit Time: 01:55 Departure-Patient Inst. Referrals: FISH COFFEY MD (PCP/Family) Primary Care Physician AGUILA CEJA DO Nov 14, 2020 00:12
[2020-11-14 00:15] LABS: BILIRUBIN,URINE 2+ (NEGATIVE); CLARITY,URINE SL CLOUDY; COLOR,URINE RED; GLUCOSE, URINE (UA) NEGATIVE (NEGATIVE); KETONES,URINE TRACE (NEGATIVE); LEUKOCYTE ESTERASE ,URINE 2+ (NEGATIVE); NITRITE,URINE POSITIVE (NEGATIVE); PH,URINE 5.5 (5-9); PROTEIN,URINE 3+ (NEGATIVE)
[2020-11-14] MEDS ORDERED: LACTATED RINGERS 1,000 ML IV ONE ×2 (00:15→02:43)
[2020-11-14] MEDS ORDERED: ONDANSETRON 4 MG/2 ML (SDV) Z0FRAN IVP ONE (00:15)
[2020-11-14 00:20] LABS: BASOPHILS # (AUTO) 0.1 10^3/uL (0.0-0.1); BASOPHILS % (AUTO) 0 % (0-10); EOSINOPHILS % (AUTO) 0 % (0-10); HEMATOCRIT 41 % (35-52); HEMOGLOBIN 13.6 g/dL (11.5-16.0); LYMPHOCYTES # (AUTO) 2.9 10^3/uL (1.0-4.0); LYMPHOCYTES % (AUTO) 16 % (12-44); MEAN CORPUSCULAR HEMOGLOBIN 31 pg (25-34); MEAN CORPUSCULAR HGB CONC 33 g/dL (32-36); MEAN CORPUSCULAR VOLUME 94 fL (80-99); MEAN PLATELET VOLUME 9.2 fL (9.0-12.2); MONOCYTES # (AUTO) 1.4 10^3/uL (0.0-1.0); MONOCYTES % (AUTO) 8 % (0-12); NEUTROPHILS # (AUTO) 13.5 10^3/uL (1.8-7.8); NEUTROPHILS % (AUTO) 75 % (42-75); PLATELET COUNT 341 10^3/uL (130-400)
[2020-11-14 00:21] LABS: ALBUMIN 4.1 GM/DL (3.2-4.5)
[2020-11-14 00:22] LABS: POTASSIUM 3.6 MMOL/L (3.6-5.0)
[2020-11-14 00:23] LABS: CALCIUM 9.6 MG/DL (8.5-10.1)
[2020-11-14 00:24] LABS: TOTAL PROTEIN 7.6 GM/DL (6.4-8.2)
[2020-11-14 00:26] LABS: BILIRUBIN,TOTAL 0.3 MG/DL (0.1-1.0)
[2020-11-14 00:28] LABS: CREATININE SERUM 0.9 MG/DL (0.60-1.30)
[2020-11-14 00:29] LABS: BACTERIA,URINE LARGE /HPF; RBC,URINE TNTC /HPF; WBC,URINE 25-50 /HPF
[2020-11-14 00:41] LABS: BAND NEUTROPHILS 2 %; LYMPHOCYTES % (MANUAL) 14 %; MONOCYTES % (MANUAL) 8 %; NEUTROPHILS % (MANUAL) 76 %; RBC MORPH NORMAL
[2020-11-14] MEDS ORDERED: CIPROFLOXACIN IV 400MG/200ML 200 ML IV ONE (00:45)
[2020-11-14] MEDS ORDERED: PHENAZOPYRIDINE 100 MG (PYRIDIUM) TABLET PO ONE (00:45)
[2020-11-14] MEDS ORDERED: fentaNYL INJ 100 MCG/2 ML AMP IVP ONE ×2 (01:00→02:15)
[2020-11-14 02:30] VITALS: BP 115/61
[2020-11-14 03:57] VITALS: BP 115/75
[2020-11-14] MEDS ORDERED: ONDANSETRON 4 MG/2 ML (SDV) Z0FRAN IV PRN (04:15)
[2020-11-14] MEDS ORDERED: ACETAMINOPHEN 500 MG TAB (TYLENOL) PO PRN (04:15)
[2020-11-14] MEDS: LACTATED RINGERS 1,000 ML IV SCH ×4 (05:42→20:24)
[2020-11-14] MEDS: fentaNYL INJ 100 MCG/2 ML AMP IV PRN ×4 (05:49→23:48)
--- NOTE | 2020-11-14 06:58 | Diagnostic Imaging Report ---
PROCEDURE: CT urinary tract, rule out kidney stone. TECHNIQUE: Multiple contiguous axial images were obtained through the abdomen and pelvis without the use of intravenous contrast. Auto Exposure Controls were utilized during the CT exam to meet ALARA standards for radiation dose reduction. INDICATION: Abdominal pain. FINDINGS: Heart size is normal. The lung bases are clear. The liver is normal in size without focal lesions. Gallbladder is unremarkable. There is no biliary ductal dilatation. Spleen is normal. The pancreas and adrenal glands are unremarkable. Kidneys are normal in appearance. There is no evidence of nephrolithiasis or obstructive uropathy. The abdominal aorta is nonaneurysmal. Bowel gas pattern is nonspecific. There is no free air. There is no ascites. There are no focal inflammatory changes. There appears to have been a previous appendectomy. Bladder is normal. There is no pelvic mass, adenopathy or free fluid. The osseous structures are unremarkable. IMPRESSION: Unremarkable noncontrast CT abdomen and pelvis. Dictated by: Dictated on workstation # [id number]
--- NOTE | 2020-11-14 07:18 | Diagnostic Imaging Report ---
INDICATION: Abdominal pain FINDINGS: The bowel gas pattern is nonspecific. There are no abnormal abdominal calcifications. The osseous structures are unremarkable. Visualized lung bases are clear. IMPRESSION: Nonspecific bowel gas pattern Dictated by: Dictated on workstation # [id number]
[2020-11-14 08:12] VITALS: BP 97/60
[2020-11-14] MEDS: KETOROLAC 30 MG/ML VIAL IV PRN ×2 (08:43→20:22)
[2020-11-14] MEDS: PHENAZOPYRIDINE 100 MG (PYRIDIUM) TABLET PO SCH ×3 (08:43→20:21)
[2020-11-14] MEDS ORDERED: ACET325T38 PO (11:13)
[2020-11-14] MEDS ORDERED: ETHI1TAB PO (11:13)
[2020-11-14] MEDS ORDERED: MULT-1136 PO (11:13)
[2020-11-14 11:37] VITALS: BP 107/73
--- NOTE | 2020-11-14 14:45 | History & Physical-Hospitalist ---
History of Present Illness HPI/Chief Complaint Tanisha Buenrostro is a 30-year-old female who presented with hematuria. She has not been feeling very well for a few days. Yesterday she had the urge to urinate but was unable to. She thought she was dehydrated. She increased her fluid intake and her urinary frequency improved. She did have some dysuria. She then started having hematuria. She then started developing groin pain which moved to her back. She has a history of asymptomatic urinary tract infections but infrequently. She has never had a kidney infection. She was having chills but no fevers. She was having nausea but no vomiting. This morning her appetite has been good and she was able to eat breakfast. Source: patient Exam Limitations: no limitations Date Seen 11/14/20 Time Seen by a Provider: 11:40 Attending Physician Andre Khan MD PCP Monty Au MD Referring Physician Date of Admission Nov 14, 2020 at 01:30 Home Medications & Allergies Home Medications Reviewed patient Home Medication Reconciliation performed by pharmacy medication reconciliations water treatment technician and/or nursing. Patients Allergies have been reviewed. Allergies Allergies Coded Allergies Cephalosporins (Verified Allergy, Unknown, 11/21/18) Penicillins (Verified Allergy, Unknown, RASH, 04/26/17) cefuroxime (Unverified Allergy, Unknown, RASH, 07/16/14) Past Tmctabm-Fdtwnb-Anuvpt Hx Patient Social History Tobacco Use?: No Smoking Status: Never a Smoker Smokeless Tobacco Frequency: Never a User Use of E-Cig and/or Vaping dev: No Substance use?: No Alcohol Use?: No Alcohol Frequency: Rarely Pt feels they are or have been: No Immunizations Up To Date Date of Influenza Vaccine: Dec 23, 2017 Hepatitis A: Yes Hepatitis B: Yes PED Vaccines UTD: Yes Seasonal Allergies Seasonal Allergies: No (as a child) Current Status status: No status: No Advance Directives: No Communicates: Verbally Primary Language: Bangladeshi Preferred Spoken Language: Bangladeshi Is interpretation needed?: No Past Medical History Surgeries: Adenoidectomy, Appendectomy, Eye Surgery, Hysterectomy, Orthopedic, 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 Sexually Transmitted Disease: No HIV/AIDS: No Anxiety Blood Disorders: No Adverse Reaction/Blood Tranf: No Family Medical History Colon cancer maternal grandfather (52) Diabetes mellitus 19 FATHER (borderline) FH: lung cancer maternal grandmother No Pertinent Family Hx Review of Systems Constitutional: chills, malaise EENTM: no symptoms reported Respiratory: no symptoms reported Cardiovascular: no symptoms reported Gastrointestinal: abdominal pain, nausea Genitourinary: decreased output, dysuria, frequency, hematuria Musculoskeletal: back pain Skin: no symptoms reported Psychiatric/Neurological: No Symptoms Reported Physical Exam Physical Exam Vital Signs Vital Signs - First Documented 11/13/20 23:56 Temp 36.4 Pulse 93 Resp 18 B/P (MAP) 109/66 (80) Pulse Ox 100 O2 Delivery Room Air Capillary Refill : Less Than 3 Seconds Height, Weight, BMI Height: 5'4.00" Weight: 140lbs. 0oz. [id number]; 24.31 BMI Method:Stated General Appearance: No Apparent Distress, WD/WN HEENT: PERRL/EOMI, Pharynx Normal Neck: Normal Inspection, Supple Respiratory: Lungs Clear, Normal Breath Sounds, No Respiratory Distress Cardiovascular: Regular Rate, Rhythm, No Edema Gastrointestinal: Normal Bowel Sounds, Soft, Tenderness Back: CVA Tenderness (L), CVA Tenderness (R) Extremity: Normal Inspection, Non Tender, No Pedal Edema Neurologic/Psychiatric: Alert, Oriented x3, No Motor/Sensory Deficits, Normal Mood/Affect Skin: Normal Color, Warm/Dry Lymphatic: No Adenopathy Results Results/Procedures Labs Laboratory Tests 11/14/20 00:07 Patient resulted labs reviewed. Imaging: Reviewed Imaging Report Assessment/Plan Admission Diagnosis Sepsis due to urinary tract infection Admission Status: Inpatient Order (span 2 midnights) Reason for Inpatient Admission: IV antibiotics Assessment and Plan Sepsis due to urinary tract infection Pyelonephritis SIRS+ with leukocytosis and tachycardia UA consistent with UTI Urine culture with gram-negative ritika Reported allergies of anaphylaxis to penicillins and cephalosporins Started on ciprofloxacin IV fluids DVT prophylaxis: Ambulation Diagnosis/Problems Diagnosis/Problems (1) Sepsis due to urinary tract infection Status: Acute (2) Pyelonephritis Status: Acute ANDRE KHAN MD Nov 14, 2020 14:45
[2020-11-14] MEDS: CIPROFLOXACIN 400 MG/D5W 200 ML (PRE-MIX) IV SCH (15:58)
[2020-11-14 16:00] VITALS: BP 109/73
[2020-11-14 20:00] VITALS: BP 117/81
[2020-11-15] VITALS: BP 127/75
[2020-11-15] MEDS: CIPROFLOXACIN 400 MG/D5W 200 ML (PRE-MIX) IV SCH ×2 (03:55→16:37)
[2020-11-15 04:25] VITALS: BP 103/62
[2020-11-15 06:11] LABS: BASOPHILS % (AUTO) 0 % (0-10); EOSINOPHILS # (AUTO) 0.1 10^3/uL (0.0-0.3); EOSINOPHILS % (AUTO) 1 % (0-10); HEMATOCRIT 35 % (35-52); HEMOGLOBIN 11.2 g/dL (11.5-16.0); LYMPHOCYTES # (AUTO) 3.5 10^3/uL (1.0-4.0); LYMPHOCYTES % (AUTO) 48 % (12-44); MEAN CORPUSCULAR HEMOGLOBIN 31 pg (25-34); MEAN CORPUSCULAR HGB CONC 32 g/dL (32-36); MEAN CORPUSCULAR VOLUME 96 fL (80-99); MEAN PLATELET VOLUME 9.6 fL (9.0-12.2); MONOCYTES # (AUTO) 0.7 10^3/uL (0.0-1.0); MONOCYTES % (AUTO) 9 % (0-12); NEUTROPHILS % (AUTO) 41 % (42-75); PLATELET COUNT 256 10^3/uL (130-400); WHITE BLOOD COUNT 7.3 10^3/uL (4.3-11.0)
[2020-11-15 06:22] LABS: POTASSIUM 3.8 MMOL/L (3.6-5.0)
[2020-11-15 06:23] LABS: CALCIUM 8.6 MG/DL (8.5-10.1)
[2020-11-15 06:27] LABS: CREATININE SERUM 0.79 MG/DL (0.60-1.30)
[2020-11-15 08:00] VITALS: BP 114/71
[2020-11-15] MEDS: LACTATED RINGERS 1,000 ML IV SCH (08:52)
[2020-11-15] MEDS: PHENAZOPYRIDINE 100 MG (PYRIDIUM) TABLET PO SCH ×3 (08:54→20:31)
[2020-11-15] MEDS: KETOROLAC 30 MG/ML VIAL IV PRN ×2 (08:54→18:38)
[2020-11-15 12:10] VITALS: BP 116/78
[2020-11-15] MEDS: fentaNYL INJ 100 MCG/2 ML AMP IV PRN (13:48)
--- NOTE | 2020-11-15 14:03 | Progress Note - Hospitalist ---
Subjective HPI/CC On Admission Date Seen by Provider: Nov 15, 2020 Time Seen by Provider: 13:59 Tanisha Buenrostro is a 30-year-old female who presented with hematuria. She has not been feeling very well for a few days. Yesterday she had the urge to urinate but was unable to. She thought she was dehydrated. She increased her fluid intake and her urinary frequency improved. She did have some dysuria. She then started having hematuria. She then started developing groin pain which moved to her back. She has a history of asymptomatic urinary tract infections but infrequently. She has never had a kidney infection. She was having chills but no fevers. She was having nausea but no vomiting. This morning her appetite has been good and she was able to eat breakfast. Subjective/Events-last exam Pt reports feeling better today but still having some pain and still tired. Discussed options to DC home or wait for sensitivities and agree to wait for sensitivities and continue on IV abx. Focused Exam Lactate Level 11/14/20 00:55: Lactic Acid Level 1.25 Objective Exam Vital Signs Vital Signs Date Time Temp Pulse Resp B/P (MAP) Pulse Ox O2 Delivery O2 Flow Rate FiO2 11/15/20 12:10 36.0 85 18 116/78 (91) 100 Room Air Capillary Refill : Less Than 3 Seconds General Appearance: No Apparent Distress, WD/WN Respiratory: Lungs Clear, No Respiratory Distress Cardiovascular: Regular Rate, Rhythm, No Murmur Neurologic/Psychiatric: Alert, Oriented x3 Results/Procedures Lab Laboratory Tests 11/15/20 05:15 Patient resulted labs reviewed. Imaging: Reviewed Imaging Report Assessment/Plan Assessment and Plan Assess & Plan/Chief Complaint Sepsis due to urinary tract infection Pyelonephritis SIRS+ with leukocytosis and tachycardia UA consistent with UTI Urine culture with gram-negative ritika, awaiting ID and sensitivities blood cultures negative Reported allergies of anaphylaxis to penicillins and cephalosporins Continue on ciprofloxacin IV fluids dc-ed DVT prophylaxis: Ambulation ANA JONES MD Nov 15, 2020 14:03
[2020-11-15 16:10] VITALS: BP 114/70
[2020-11-15 20:09] VITALS: BP 132/87
[2020-11-16 00:18] VITALS: BP 113/74
[2020-11-16] MEDS: CIPROFLOXACIN 400 MG/D5W 200 ML (PRE-MIX) IV SCH (04:06)
[2020-11-16] MEDS: KETOROLAC 30 MG/ML VIAL IV PRN (05:22)
[2020-11-16 08:00] VITALS: BP 117/74
[2020-11-16] MEDS: PHENAZOPYRIDINE 100 MG (PYRIDIUM) TABLET PO SCH (08:26)
[2020-11-16] MEDS ORDERED: CIPR250T3 PO (11:18)
[2020-11-16] MEDS ORDERED: FLUC150T PO (11:18)
--- NOTE | 2020-11-16 11:27 | Discharge Inst-Simple/Standard ---
Discharge Inst-Standard Discharge Medications New, Converted or Re-Newed RX: Transmitted to Pharmacy Patient Instructions/Follow Up Plan of Care/Instructions/FU: Please continue to take your medications as written. Please follow up with your primary care doctor to follow up this hospital stay. Activity as Tolerated: Yes Discharge Diet: No Restrictions Return to The Hospital For: Fever, back pain, burning with urination, weakness, confusion, if you feel you are getting worse. ANA JONES MD Nov 16, 2020 11:24
--- NOTE | 2020-11-16 11:31 | Discharge Summary ---
Diagnosis/Chief Complaint Date of Admission Nov 14, 2020 at 01:30 Date of Discharge Discharge Date: Nov 16, 2020 Admission Diagnosis Sepsis due to urinary tract infection Primary Care Monty Au MD Discharge Diagnosis (1) Sepsis due to urinary tract infection Status: Acute (2) Pyelonephritis Status: Acute Discharge Summary Discharge Physical Exam Allergies: Coded Allergies: Cephalosporins (Verified Allergy, Unknown, 11/21/18) Penicillins (Verified Allergy, Unknown, RASH, 04/26/17) cefuroxime (Unverified Allergy, Unknown, RASH, 07/16/14) Vitals & I&Os Vital Signs Date Time Temp Pulse Resp B/P (MAP) Pulse Ox O2 Delivery O2 Flow Rate FiO2 11/16/20 08:00 Room Air 11/16/20 08:00 36.0 87 18 117/74 (88) 99 Hospital Course Labs (last 24 hrs) Microbiology 11/14/20 Blood Culture - Preliminary, Resulted No growth 11/14/20 Urine Culture - Preliminary, Resulted Escherichia coli Patient resulted labs reviewed. Imaging: Reviewed Imaging Report Discharge Home Medications: Active Scripts Active Diflucan (Fluconazole) 150 Mg Tablet 150 Mg PO DAILY Ciprofloxacin HCl 250 Mg Tablet 250 Mg PO BID Reported Tylenol (Acetaminophen) 325 Mg Tablet 650 Mg PO Q6H PRN Multivitamin 1 Each Tablet 1 Each PO DAILY Ocella 3 mg-0.03 mg Tablet (Ethinyl Estradiol/Drospirenone) 1 Each Tablet 1 Each PO DAILY Instructions to patient/family Please see electronic discharge instructions given to patient. ANA JONES MD Nov 16, 2020 11:31
== END 2020-11-16 12:35 | disposition home or self-care (01) | DRG 872 ==
LOC: EDUNIT# 23:07 → ER 23:09 → 4TH 11-14 01:30
PROVIDERS: ADMIT Internal Medicine; ATTEND Internal Medicine
DX: A41.51 Sepsis due to Escherichia coli [E. coli] (principal); N10 Acute pyelonephritis; Z88.0 Allergy status to penicillin; Z88.1 Allergy status to other antibiotic agents
CPT/HCPCS: 36415; 74018; 74176; 80048; 80053; 81000; 83605; 84145; 85007; 85025; 85027; 87040; 87077; 87088; 87186; 96361; 96365; 96375; 96376

== ENCOUNTER → 2021-09-03 | Outpatient (CLI) | payer BC ==
[~2021-09-03] MED LIST changes: +ACET325T38 PO; +CIPR250T3 PO; +ETHI1TAB PO; +FLUC150T PO; +MULT-1136 PO
== END ==
LOC: LAB FS 00:23
PROVIDERS: ATTEND Family Medicine
DX: R21 Rash and other nonspecific skin eruption (principal); W57.XXXA Bitten or stung by nonvenomous insect and other nonvenomous arthropods, initial encounter
CPT/HCPCS: 36415; 86618; 86666; 86668; 86757

== ENCOUNTER 2022-12-21 07:24 | Day surgery (SDC) | payer BC ==
--- NOTE | 2022-11-30 23:52 | HISTORY AND PHYSICAL ---
COLONOSCOPY HISTORY AND PHYSICAL HISTORY OF PRESENT ILLNESS: The patient is a 32-year-old white female seen for yearly wellness evaluation. She reported that she has been doing well up until September when she was on vacation when she developed diarrhea with early satiety, a little bit of bloating. Initially, there was no evidence for blood. Diarrhea improved a little, but she continues to have several loose stools per day and over the past week this has been associated with red blood and occasional passage of clots. She has some occasional mild crampy left lower quadrant pain. Denies chills, fever. Her weight was down significantly, but she started Ozempic 10 weeks ago and has not lost any weight. Prior to this, in fact having difficulty with weight loss. She had checked her fasting sugars on occasion as her father has a history of diabetes and she was in the 120-140 range prior to Ozempic in the morning. By the time she got an A1c through the provider giving her Ozempic. She has been on the medicine for at least 8-9 weeks and her A1c was 5.8 per her report. In our office, her weight was down 14 pounds, compared to last year. She has had surgically induced menopause for total abdominal hysterectomy and salpingo-oophorectomy number of years ago for endometriosis and has been on initial estrogen patch that was switched to a combination estrogen and testosterone cream as she was told by her MECHANICAL EQUIPMENT TEST ENGINEER that her testosterone was a little bit low and she was having more hot flashes on estrogen alone. This has resolved and she was feeling better on the cream. She has had no previous reason for colonoscopy and there is no known family history for colon cancer. SOCIAL HISTORY: She does not have any significant alcohol consumption and no past smoking history. 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 She reports being fully vaccinated for work. PHYSICAL EXAMINATION: GENERAL: Reveals a white female who did not appear to be in acute distress, although slightly pale. Sclerae nonicteric. VITAL SIGNS: Weight 148 pounds, BMI 25, blood pressure 100/70. CHEST: Clear. CARDIOVASCULAR: Reveals regular rate and rhythm without murmur, S3, or S4. ABDOMEN: Soft, supple. She has some left lower quadrant discomfort to palpation without rebound or guarding. No mass or organomegaly is noted. EXTREMITIES: No cyanosis, clubbing or edema. SKIN: Evaluation reveals no suspicious rash. ASSESSMENT AND PLAN: Stable wellness examination except for diarrhea with rectal bleeding. The patient is being set up for colonoscopy as her diarrhea now qualifies for chronic nearly 3 months in duration. Prep instructions were given and questions were answered. We did obtain a CBC pending at the time of dictation in addition to lipid panel, TSH and CMP. Due to likely insulin resistance, we will have her follow up in 4 months with an A1c and BMP and she will continue on Ozempic. Job ID: [id number] DocumentID: [id number] Dictated Date: 11/28/2022 13:28:18 Mechanical Manufacturing Engineer Date: 11/28/2022 13:55:00 Dictated By: FISH COFFEY MD
[~2022-12-21] VITALS: Ht 162.5 cm; Wt 64.9 kg
[~2022-12-21 07:24] MED LIST changes: +PRO TOP; +SEMA1PEN3 SQ; +[UNRECOGNIZED DRUG - OTHER] TOP
[2022-12-21] MEDS ORDERED: LACTATED RINGERS 1,000 ML 1,000 ML IV STA (07:25)
--- NOTE | 2022-12-21 07:50 | Pre-Op Note & Conscious Sedat ---
Pre-Operative Progress Note Date H&P Reviewed: Dec 21, 2022 Time H&P Reviewed: 07:49 History & Physical: H&P Reviewed, Patient Examed, No changes noted Pre-Op Diagnosis: diarrhea with rectal bleeding Moderate Sedation PreProcedure ASA Score 1 Airway Lungs Heart ASA score ASA 1: a normal healthy patient ASA 2: a patient with a mild systemic disease (mid diabetes, controlled hypertension, obesity ASA 3: a patient with a severe systemic disease that limits activity (angina, COPD, prior Myocardial infarction) ASA 4: a patient with an incapacitating disease that is a constant threat to life (CHF, renal failure) ASA 5: a moribund patient not expected to survive 24 hrs. (ruptured aneurysm) ASA 6: a declared brain- patient whose organs are being harvested. For emergent operations, add the letter E after the classification Mallampati Classification Grade 1 Sedation Plan Analgesia, Amnesia, Plan communicated to team members, Discussed options with patient/fam, Discussed risks with patient/fam The patient is an appropriate candidate to undergo the planned procedure, sedation, and anesthesia. The patient immediately re-assessed prior to indication. FISH COFFEY MD Dec 21, 2022 07:50
[2022-12-21 07:54] VITALS: BP 103/77
[2022-12-21] MEDS ORDERED: MIDAZOLAM INJ 2 MG/2 ML VIAL ONE (07:54)
[2022-12-21 08:20] VITALS: BP 91/57
[2022-12-21 08:25] VITALS: BP_SYST 98; BP_DIAS 56; BP_DIAS 65
--- NOTE | 2022-12-21 08:27 | Progress Note-Post Operative ---
Post-Procedure Note Physician (s)/[employer] (s) Physician FISH COFFEY MD Pre-Procedure Diagnosis Pre-Procedure Diagnosis: diarrhea with rectal bleeding Post-Procedure Diagnosis Post-operative diagnosis: Prior to undergoing colonoscopy digital rectal evaluation was performed. Anal sphincter tone was normal and the perianal reflexes intact. No abnormalities noted digital specks in anal canal distal rectal vault. The colonoscope was then inserted into the rectum and under direct visualization advanced to the cecum. The cecum was identified by the indication of the ileocecal valve and cecal strap. Distal 5 cm of terminal ileum were unremarkable to gross inspection as well. Careful inspection was made as the colonoscope was withdrawn. Quality the prep was good. Findings in the distal rectum there is some mild patchy erythema without evidence for ulceration and minimal distortion of the background vasculature. The remainder of the colonoscopy as well as terminal ileum were unremarkable with no evidence for neoplasia diverticular disease inflammatory change or vascular malformation. A/P 1. Questionable distal mild proctitis biopsies were obtained from the rectum as well as the ascending colon to evaluate for underlying colitis with an otherwise unremarkable colonoscopy to the cecum including distal 5 cm terminal ileum. FISH COFFEY MD Dec 21, 2022 08:27
[2022-12-21] MEDS ORDERED: ONDANSETRON INJECTION 4 MG/2 ML (SDV) ONE (08:47)
[2022-12-21] MEDS ORDERED: ONDANSETRON INJECTION 4 MG/2 ML (SDV) IVP ONE (09:00)
[2022-12-21 09:30] VITALS: BP 98/56
--- NOTE | 2022-12-21 10:25 | Anesthesia-General Post-Op ---
MAC Patient Condition Mental Status/LOC: Same as Preop Cardiovascular: Satisfactory Nausea/Vomiting: Absent Respiratory: Satisfactory Pain: Controlled Complications: Absent Post Op Complications Complications None Follow Up Care/Instructions Patient Instructions None needed. Anesthesiology Discharge Order Discharge Order Patient is doing well, no complaints, stable vital signs, no apparent adverse anesthesia problems. No complications reported per nursing. PABLITO KIRBY CRNA Dec 21, 2022 10:25
== END 2022-12-21 09:30 | disposition home or self-care (01) ==
LOC: ENDO 07:24
PROVIDERS: ATTEND Internal Medicine
DX: K52.9 Noninfective gastroenteritis and colitis, unspecified (principal); K62.5 Hemorrhage of anus and rectum; K63.89 Other specified diseases of intestine; Z79.899 Other long term (current) drug therapy
CPT/HCPCS: 82947